=== PATIENT | female | born 1955 | race Caucasian/White ===

== ENCOUNTER 2016-10-21 19:18 | Emergency (ER) | payer MEDICARE ==
[2016-08-16 08:02] VITALS: BMI 25.0
[~2016-10-21 19:18] MED LIST: ALTACE5 MG PO; ASPIRIN325 MG PO; ASPIRIN81 MG PO; BAYER CHEWABLE81 MG PO; CALCIUM 500 + D1 TAB PO; CLARITIN; CLARITIN 10 MG10 MG PO; COREG 3.1253.125 MG GT; COREG 3.1253.125 MG PO; COREG12.5 MG PO; DILANTIN100 MG PO; FERROUS SULFAT325 MG PO; FLAGYL500 MG PO; FLEXERIL10 MG PO; FUROSEMIDE40 MG PO; GABAPENTIN100 MG PO; HYDROCODON-ACE1 EAC7 PO; HYDROCODONE-APA1 TAB PO; INSULIN; INSULIN LISPRO CI; K-TAB10 MEQ PO; LASIX40 MG PO; LEVAQUIN500 MG PO; LIPITOR40 MG PO; MIRALAX17 GM PO; MULTIPLE VITAMI1 TA1 PO; NAPROSYN250 MG PO; NAPROSYN500 MG PO; NEURONTIN 100100 MG PO; NEURONTIN 300300 MG PO; NORVASC5 MG PO; PEPCID20 MG PO; PLAVIX75 MG PO; POTASSIUM CHLO10 ME1 PO; PRAVACHOL40 MG PO; PROTONIX40 MG PO; REGLAN10 MG PO; RENVELA800 MG PO; RESTORIL15 MG PO; ROCALTROL0.5 MCG PO; ULTRAM50 MG PO; VITAMIN D2000 UNIT PO; VOLTAREN75 MG PO; ZOFRAN ODT4 MG/UDTAB PO; ZOFRAN4 MG PO
== END 2016-10-21 22:00 | disposition home or self-care (01) ==
LOC: D.ER 19:18
DX: E11.649 Type 2 diabetes mellitus with hypoglycemia without coma (principal); Z79.4 Long term (current) use of insulin; N18.9 Chronic kidney disease, unspecified; Z99.2 Dependence on renal dialysis

== ENCOUNTER 2016-10-27 06:00 | Observation (INO) | payer MEDICARE ==
[~2016-10-27] VITALS: Ht 165.1 cm; Wt 71.5 kg
[2016-10-27 06:33] LABS: BASOPHILS 0.7 % (0.0-2.0); EOSINOPHILS 2.9 % (0-7); HEMATOCRIT 30.9 % (36.0-48.0); HEMOGLOBIN 9.8 g/dL (12-16); IMMATURE GRANULOCYTES 0.2 % (0-5); LYMPHOCYTES 21.1 % (15-50); MCH 31.1 pg (26.0-34.0); MCHC 31.7 g/dL (31.0-37.0); MCV 98.1 fL (80.0-100.0); MEAN PLATELET VOLUME 11.5 fL (7.4-10.4); MONOCYTES 5.5 % (2-11); NEUTROPHILS 69.6 % (40-80); RBC 3.15 10x6/uL (4.00-5.40); RDW 13.7 % (11.5-14.5); WBC 4.6 10x3/uL (4.8-10.8)
[2016-10-27 06:37] LABS: PLATELET COUNT 112 10x3/uL (130-400)
[2016-10-27 06:52] LABS: ALBUMIN 3.4 g/dL (3.4-5.0); ANION GAP 11.4 mmol/L (8-16); BILIRUBIN - TOTAL 0.4 mg/dL (0.2-1.3); CALCIUM 9.1 mg/dL (8.5-10.1); CARBON DIOXIDE 31.8 mmol/L (21.0-32.0); CREATININE - SERUM 6.8 mg/dL (0.6-1.3); POTASSIUM - SERUM 5.2 mmol/L (3.5-5.1); PROTEIN - SERUM 6.6 g/dL (6.4-8.2)
[2016-10-27 07:02] LABS: TROPONIN-I 0.017 ng/mL (0.000-0.060)
--- NOTE | 2016-10-27 11:22 | NUR ---
1110-RECEIVED VIA STRETCHER TO ROOM FROM ED, SPOUSE AT BEDSIDE. RT AVF WITH + BRUIT AND THRILL. SALINE LOCK SEEN TO LEFT WRIST AREA. ON ROOM AIR. PATIENT HAS AN ISULIN PUMP THAT I ASKED FOR HER TO TAKE OFF. CHECKED FINGER STICK BLOOD SUGAR WITH RESULT OF 234.NON SKID SOCKS ARE PLACED ON PATIENT. WILL ADMIT.
[2016-10-27] MEDS ORDERED: MYSOLINE 50 MG50 MG PO (11:34)
[2016-10-27 11:43] VITALS: BP 133/33; BMI 25.2
[2016-10-27 11:50] VITALS: BP 133/33
[2016-10-27 15:52] VITALS: BP 125/41
--- NOTE | 2016-10-27 16:32 | NUR ---
CALL PLACED TO DR HERNANDEZ OFFICE R/T NEEDING SLIDING SCALE INSULIN. SPOKE WITH DR HERNANDEZ AND NEW ORDERS ARE RECEIVED.
--- NOTE | 2016-10-27 18:25 | NUR ---
DR SHERIFF HERE TO SEE PATIENT.
[2016-10-27 20:00] VITALS: BP 121/47
--- NOTE | 2016-10-27 21:22 | NUR ---
RESTING IN BED. LETHARGIC. AROUSES TO VOICE. ORIENTED CONVERSANT. DENIES NEEDS. NO ACUTE DISTRESS NOTED.
[2016-10-28] VITALS: BP 122/52
--- NOTE | 2016-10-28 02:09 | NUR ---
LYING IN BED WITH EYES CLOSED, CALL LIGHT IN REACH. WILL CONTINUE WITH PLAN OF CARE.
[2016-10-28 04:00] VITALS: BP 109/45
[2016-10-28 05:24] LABS: BASOPHILS 0.8 % (0.0-2.0); EOSINOPHILS 2.7 % (0-7); HEMATOCRIT 30.5 % (36.0-48.0); HEMOGLOBIN 9.6 g/dL (12-16); IMMATURE GRANULOCYTES 0.2 % (0-5); LYMPHOCYTES 35.1 % (15-50); MCH 30.8 pg (26.0-34.0); MCHC 31.5 g/dL (31.0-37.0); MCV 97.8 fL (80.0-100.0); MEAN PLATELET VOLUME 12.2 fL (7.4-10.4); MONOCYTES 8.1 % (2-11); NEUTROPHILS 53.1 % (40-80); PLATELET COUNT 116 10x3/uL (130-400); RBC 3.12 10x6/uL (4.00-5.40); WBC 4.8 10x3/uL (4.8-10.8)
[2016-10-28 05:55] LABS: ANION GAP 15.4 mmol/L (8-16); CALCIUM 8.9 mg/dL (8.5-10.1); CARBON DIOXIDE 27.8 mmol/L (21.0-32.0); CREATININE - SERUM 7.8 mg/dL (0.6-1.3)
[2016-10-28 05:58] LABS: POTASSIUM - SERUM 6.2 mmol/L (3.5-5.1)
--- NOTE | 2016-10-28 07:50 | NUR ---
0730-AM ROUNDING DONE, PATIENT IS AWAKE AND SMILING THIS AM. STATES THAT SHE FEELS BETTER. NS INFUSING AT 30 CC/HR (DECREASED TO 10 ORDERED) TO LEFT HAND. ON ROOM AIR. ON HEART MONITOR SHOWING SB, HR 52. RIGHT AVF, FOR DIALYSIS TODAY. WILL CONTINUE TO MONITOR.
[2016-10-28 08:06] VITALS: BP 105/44
--- NOTE | 2016-10-28 08:33 | NUR ---
RATIONALE FOR SCD'S EXPLAINED. REFUSED SCD'S
--- NOTE | 2016-10-28 10:41 | NUR ---
10:38 DCP: Discharge Planning Patient Name: JULIO ACE Encounter No: [id number] : 1955 Primary Insurance: MEDICARE A & B Anticipated DC Date: 10-28-2016 Planned Disposition: Home External Planned Provider: : JESSA follow-up note: Patient and family in agreement with discharge plan. No changes to plan. Case management will follow and assist as needed. Tova Chapman * Is the patient Alert and Oriented? Yes 0 * How many steps to enter\\exit or inside your home? 2 0 * PCP ARABELLA 0 * Pharmacy [facility] ([facility]) 0 * Preadmission Environment Home with Family 0 * ADLs Independent 0 * Equipment Glucometer 0 * Other Equipment The patient states she has a walker, cane, shower chair, and BSC that belonged to her mother in law but does not use any equipment. 0 * List name and contact numbers for known caregivers / representatives who currently or will assist patient after discharge: NIVIA ACE "spouse" ([phone]) 0 * Community resources currently utilized None 0 * Additional services required to return to the preadmission environment? No 0 * Can the patient safely return to the preadmission environment? Yes 0 * Has this patient been hospitalized within the prior 30 days at any [id number]: Tova Chapman 10/28/2016 10:31 DCP: Discharge Planning Patient Name: JULIO ACE Admission Status: Accout number: [id number] Admission Date: 10-27-2016 : 1955 Admission Diagnosis: Attending: NBA Current LOS: 1 Anticipated DC Date: 10-28-2016 Planned Disposition: Home Primary Insurance: MEDICARE A & B Discharge Planning Comments: CM MET WITH PATIENT TO DISCUSS DISCHARGE PLANNING/NEEDS. THE PATIENT STATES SHE RESIDES AT HOME WITH HER SPOUSE "NIVIA ACE" ([phone]) AND IS INDEPENDENT OF ALL ADL'S. SHE STATES SHE NOW DOES HOME DIALYSIS ON . SHE DENIES THE NEED FOR HH OR DME SUPPLIES AT THIS TIME. HER SPOUSE WILL BE HER CAREGIVER AT HOME WELL HER TRANSPORTATION HOME AT DISCHARGE. CM TO FOLLOW AND ASSIST NEEDED WITH DISCHARGE PLANNING/NEEDS. Regional Clinical Research Associate: Tova Chapman RN/SHERYL
[2016-10-28 12:00] VITALS: BP 112/42
--- NOTE | 2016-10-28 12:28 | NUR ---
DENIES NEEDS AT PRESENT TIME. REPORTS TO FEELING A LOT BETTER THAN YESTERDAY, HAS A SMILE ON HER FACE. WILL CONTINUE TO FOLLOW, STILL AWITING TO GO TO DIALYSIS TODAY.
[2016-10-28 13:00] VITALS: Ht 165.1 cm; Wt 71.5 kg
--- NOTE | 2016-10-28 13:47 | NUR ---
DIALYSIS HERE FOR BEDSDIE HD.
[2016-10-28 16:00] VITALS: BP 112/41
[2016-10-28 20:51] VITALS: BP 128/51
[2016-10-29 00:54] VITALS: BP 127/58
[2016-10-29 04:03] VITALS: BP 128/52
[2016-10-29 05:17] LABS: BASOPHILS 0.8 % (0.0-2.0); EOSINOPHILS 3.3 % (0-7); HEMATOCRIT 28.5 % (36.0-48.0); IMMATURE GRANULOCYTES 0.3 % (0-5); LYMPHOCYTES 35.1 % (15-50); MCH 31.4 pg (26.0-34.0); MCHC 31.6 g/dL (31.0-37.0); MCV 99.3 fL (80.0-100.0); MEAN PLATELET VOLUME 11.5 fL (7.4-10.4); MONOCYTES 8.4 % (2-11); NEUTROPHILS 52.1 % (40-80); PLATELET COUNT 102 10x3/uL (130-400); RBC 2.87 10x6/uL (4.00-5.40); RDW 14.2 % (11.5-14.5); WBC 3.6 10x3/uL (4.8-10.8)
[2016-10-29 05:42] LABS: ANION GAP 14.5 mmol/L (8-16); CALCIUM 8.2 mg/dL (8.5-10.1); CARBON DIOXIDE 27.2 mmol/L (21.0-32.0); MAGNESIUM - SERUM 1.8 mg/dL (1.8-2.4); PHOSPHOROUS 4.6 mg/dL (2.5-4.9)
[2016-10-29 05:52] LABS: CREATININE - SERUM 4.5 mg/dL (0.6-1.3); POTASSIUM - SERUM 4.7 mmol/L (3.5-5.1)
--- NOTE | 2016-10-29 05:58 | NUR ---
AM GLUCOSE 489. NEPHROLOGY SUSI.
--- NOTE | 2016-10-29 06:07 | NUR ---
RECEIVED CALL FROM DR CRUZ. INFORMED DR THAT PT GLUCOSE 489. PHYSICIAN ASKED IF PT HAD SLIDING SCALE. INFORMED PHYSICIAN THAT THAT SLIDING SCALE STATED TO GIVE PT 12 UNITS AND TO CALL MD. NO NEW ORDERS RECEIVED.
--- NOTE | 2016-10-29 07:00 | NUR ---
RECEIVED REPORT. ASSUMED CARE OF PATIENT. CALL LIGHT WITHIN REACH. PATIENT A&O. RESP EVEN AND UNLABORED. DENIES ANY ACUTE PAIN. REPORTS CHRONIC BACK PAIN. AT BEDSIDE FOR ROUNDS. NOTIFIED HIM OF 489 FSBS AT 0600. WILL RECHECK AT 0800 AND COVER PER SLIDING SCALE PER . WANTS PATIENT FSBS AT 150 OR HIGHER. DENIES NEEDS. NO DISTRESS.
[2016-10-29 07:35] VITALS: BP 119/75
--- NOTE | 2016-10-29 08:02 | NUR ---
CALLED TO PATIENT ROOM, PATIENT STATES IV TO LEFT HAND IS LEAKING. 20 GAUGE TO LEFT HAND REMOVED DUE TO LEAKING. CATHETER TIP INTACT. NO BLEEDING FROM SITE. 2X2 GAUZE APPLIED AND SECURED WITH TAPE. WILL RESITE IV AFTER PATIENT COMPLETES AM MEAL.
--- NOTE | 2016-10-29 08:35 | NUR ---
22 GAUGE IV PLACED TO LEFT WRIST X 1 STICK. GOOD BLOOD RETURN, EASY FLUSH. TAPED, DATED AND SECURED. PATIENT TOLERATED IV PLACEMENT WELL. NO DISTRESS.
--- NOTE | 2016-10-29 08:54 | NUR ---
FSBS 359. 10 UNITS HUMALOG ADMINITSERED PER SLIDING SCALE AT THIS TIME PER . NO DISTRESS.
--- NOTE | 2016-10-29 08:54 | NUR ---
PATIENT REFUSED BP MEDICATIONS JUST INCASE SHE HAS DIALYSIS TODAY.
[2016-10-29 11:19] VITALS: BP 113/50
--- NOTE | 2016-10-29 11:50 | NUR ---
FSBS 316. 8 UNITS HUMALOG ADMINISTERED PER SLIDING SCALE. CONSUMING NOON MEAL AT THIS TIME.
--- NOTE | 2016-10-29 14:08 | NUR ---
RESTING WELL IN BED WITH ATTENTION TOWARD TELEVISION. CALL LIGHT WITHIN REACH. NO DISTRESS. DIET LEMON GRINDSTONE SODA PROVIDED UPON REQUEST.
[2016-10-29 15:09] VITALS: BP 123/60
--- NOTE | 2016-10-29 16:40 | NUR ---
FSBS 231. 4 UNITS HUMALOG ADMINISTERED PER SLIDING SCALE AT THIS TIME. NO DISTRESS. CONSUMIN PM MEAL.
--- NOTE | 2016-10-29 20:55 | NUR ---
FSBS 459 FIRST CHECK 420 SECOND CHECK. PHYSICIAN PAGED
--- NOTE | 2016-10-29 21:03 | NUR ---
DR NINA RETURNED CALL. PT SS CHANGED TO HIGH RESISTANCE. ADDITIONAL 5 UNITS TO BE GIVEN NOW
[2016-10-29 21:17] VITALS: BP 144/56
[2016-10-30 02:01] VITALS: BP 138/50
--- NOTE | 2016-10-30 02:05 | NUR ---
EYES CLOSED, RESP EVEN AND UNLAB, WITH NO S/S OF ACUTE DISTRESS NOTED. RT ARM FISTULA NOTED. HOB UP SR UP X2, C/L IN REACH. CONTINUE TO MONITOR.
--- NOTE | 2016-10-30 04:13 | NUR ---
PT 4 AM FSBS 30. TEST REPEATED, RESULT 32. ADMINISTERED 50ML D50
--- NOTE | 2016-10-30 04:16 | NUR ---
EMAR NOT ALLOWING D50 TO BE ADMINISTERED 1 TIME DOSE OF 50ML. EMAR DOCUMENTATION COMPLETED TWICE TO TOTAL 50ML
[2016-10-30 04:25] VITALS: BP 139/65
[2016-10-30 05:09] LABS: BASOPHILS 0.8 % (0.0-2.0); EOSINOPHILS 5.6 % (0-7); HEMATOCRIT 28.4 % (36.0-48.0); HEMOGLOBIN 9.1 g/dL (12-16); IMMATURE GRANULOCYTES 0.3 % (0-5); LYMPHOCYTES 35.5 % (15-50); MCH 31.5 pg (26.0-34.0); MCV 98.3 fL (80.0-100.0); MEAN PLATELET VOLUME 11.1 fL (7.4-10.4); MONOCYTES 11.5 % (2-11); NEUTROPHILS 46.3 % (40-80); PLATELET COUNT 115 10x3/uL (130-400); RBC 2.89 10x6/uL (4.00-5.40); RDW 14.3 % (11.5-14.5); WBC 3.9 10x3/uL (4.8-10.8)
[2016-10-30 05:30] LABS: ANION GAP 13.2 mmol/L (8-16); CALCIUM 8.7 mg/dL (8.5-10.1); CARBON DIOXIDE 28.6 mmol/L (21.0-32.0); PHOSPHOROUS 5.1 mg/dL (2.5-4.9)
[2016-10-30 05:32] LABS: CREATININE - SERUM 6.2 mg/dL (0.6-1.3); POTASSIUM - SERUM 3.8 mmol/L (3.5-5.1)
[2016-10-30 07:28] VITALS: BP 110/53
[2016-10-30 11:57] VITALS: BP 131/54
[2016-10-30 15:10] VITALS: BP 119/53
--- NOTE | 2016-10-30 18:46 | NUR ---
ALERT AND ORIENTED X4. FSBS 140, CUP OF ICECREAM GIVEN PER PATIENT REQUEST. PREPARE SHIFT CHANGE REPORT. DENIES PAIN OR SOB. ANXIOUS TO GO HOME. CONTINUE SAFETY PRECAUTIONS.
--- NOTE | 2016-10-30 20:15 | NUR ---
PT AWAKE, ALERT, ORIENTED, HERE TO TAKE PT HOME. PT DENIES ANY NEEDS. PT STATES THAT HER GLUCOMETER IS NOT FUNCTIONING PROPERLY AND READING HIGHER THAN WHAT HER ACTUAL FSBS IS, HOWEVER, SHE CHECKED IT RIGHT BEFORE I DID WITH HER GLUCOMETER AND GOT A READING OF 150. I CHECKED IMMEDIATELY AFTER, USING A DIFFERENT FINGER AND IT WAS 194. I DID TEACHING ON HER MEDICATIONS, AND S/S OF HYPOGLYCEMIA TO HER AND HER . WILL D/C IV, GO OVER D/C PAPERWORK AND ANSWER ANY QUESTIONS PT AND MAY HAVE AND REITERATE THE IMPORTANCE OF KEEPING HER FOLLOW UP APPTS WITH HER FRUIT AND VEGETABLE CLASSER, PCP, AND DYALISIS.
--- NOTE | 2016-10-30 20:44 | NUR ---
REVIEWED D/C PAPERS WITH PT AND , ONLY QUESTION FROM PT WAS ABOUT DOWNLOADING HER GLUCOMETER. I ADVISED PT TO SPEAK WITH HER NURSE AT HER ENDOCRINOLOGISTS OFFICE AND TO MAKE SURE SHE KEEPS HER APPT. PT AND STATED THEY UNDERSTOOD THESE INSTRUCTIONS, AND AGREED THAT THEY WILL KEEP THE UPCOMING APPTS. I ALSO URGED PT TO CALL DR. BELL OFFICE [facility] TOMORROW FOR AN APPT THIS WEEK. PT AGREED TO DO SO. PT WAS TAKEN VIA WHEELCHAIR TO FRONT DOOR WHERE WAS WAITING WITH THEIR CAR.
--- NOTE | 2016-11-08 17:39 | HP ---
PATIENT: JULIO ACE MEDICAL RECORD: [id number] ACCOUNT: [id number] LOCATION:[address] : [birth year] ADMISSION DATE: 10/27/16 HISTORY AND PHYSICAL EXAMINATION DATE OF ADMISSION: 10/27/2016 CHIEF COMPLAINT: Nausea and vomiting. HISTORY OF PRESENT ILLNESS: The patient is a 61-year-old diabetic female, who presented to the Emergency Room via ambulance. The patient has a history of being insulin-dependent diabetic, states her awakened at approximately 3:00 a.m. this morning, felt that she was clammy. She also had periods of having hypoglycemic episode was in the ER less than 2 weeks ago. She has seen by an chief supply chain officer in [place]. The patient states her began giving her foods to help elevate her blood sugar. She became acutely nauseated and started having vomiting, presents to the Emergency Room. PAST MEDICAL HISTORY: Significant. Recently, the patient was started on hemodialysis 3 times a week. She has also had a history of having congestive heart failure. She has had arteriosclerotic heart disease. She has had history of anemia, hypertension. She has had 7 cardiac stents placed. She also had back surgery times 3. She had cataract surgery. She had tubal ligation, tonsillectomy, . She has had a myocardial infarction. FAMILY HISTORY: Unknown. She is an adopted child. ALLERGIES: CIPRO. MEDICATIONS: The patient is on amlodipine 5 mg 1 p.o. b.i.d., aspirin 81 mg once a day, atorvastatin 40 mg once a day, carvedilol 12.5 b.i.d., Centrum Silver 1 a day, famotidine 20 mg b.i.d., Lasix 40 mg 1 p.o. b.i.d., gabapentin 100 mg t.i.d. She is on Humalog sliding scale. She also was on insulin pump, dose is unknown. Tramadol 50 mg one every 4 hours p.r.n. severe pain. HABITS: The patient is a former smoker, 1 pack a day, stopped many years ago. She is educated through the 12th grade, born and raised in [place]. REVIEW OF SYSTEMS: CONSTITUTIONAL: She denies any headaches, seizures, or syncope. Denies change in visual or auditory acuity. PULMONARY: She denies any shortness of breath, cough, congestion, history of asthma or bronchitis. CARDIOVASCULAR: She has had no chest pain, palpitation, PND, orthopnea. GASTROINTESTINAL: No chronic nausea, vomiting, melena or hematochezia. GENITOURINARY: No urgency, frequency, or dysuria. PHYSICAL EXAMINATION: GENERAL: The patient was somewhat somnolent. Would arouse to verbal stimuli, would respond. VITAL SIGNS: Her temperature is 97.9, her pulse 80, respirations 18, her blood pressure 122/56, O2 sat was 100%. HEENT: Her head is normocephalic. No lesions. Ears: TMs clear. Eyes: Pupils equal, round and reactive to light. Her extraocular movements are intact. Her nasal cavity, oral cavity, oropharynx clear. HISTORY AND PHYSICAL [id number] JULIO ACE NECK: Supple. There is no adenopathy. HEART: Has a regular rhythm. No murmurs, gallops or rubs. LUNGS: Clear. ABDOMEN: Soft, bowel sounds positive. No organomegaly. GENITAL AND RECTAL: Deferred. The patient had blood sugar of 67 by EMS. The patient was given an amp of D50. Blood sugars were elevated at 353. Initially, her temperature is 97.5, her pulse is 55, respirations 14, blood pressure 125/41, pulse ox 98. Her head is normocephalic. No lesions. Ears: TMs clear. Eyes: Pupils equal, round and reactive to light. Extraocular movements intact. Nasal cavity, oral cavity and oropharynx clear. Neck: Supple. There is no adenopathy. Heart with no murmurs, gallops or rubs. Lungs: Clear. Abdomen is soft, nontender. Lower extremities have no edema. LABORATORY DATA: The patient's white count was 4.6, hemoglobin 9.8, hematocrit 30.9, her platelets were 112. Sodium was 133, potassium 5.2, chloride is 95, CO2 is 31.8. Her anion gap 11.2, BUN 62, creatinine 6.8. Glucose was 231. Liver functions were unremarkable. ProBNP was elevated at 5794. ASSESSMENT: 1. Nausea and vomiting, possible gastroenteritis. 2. History of insulin-dependent diabetes mellitus with periods of hypoglycemia. 3. Chronic renal failure, now on hemodialysis 3 times a week. 4. Hypertension. 5. History of arteriosclerotic heart disease with stents times 7. PLAN: The patient is admitted. She will be placed on normal saline. She will also stopped her insulin pump, place on Humalog sliding scale. Nephrology consultation will be obtained. She will be given antiemetics as well. TRANSINT:[id number] Voice Confirmation ID: [id number] DOCUMENT ID: [id number] ELIZABETH BELL MD at 1739 CC: [id number] DICTATION DATE: 10/27/161754 TEXTILE MACHINE OPERATOR: 10/27/161913 DIS IN 10/30/16 [facility] [address] [place] [address]
== END 2016-10-30 20:54 | disposition home or self-care (01) ==
LOC: D.ER 06:00 → OBSVTIME 09:06 → D.M2 09:06 → D.MS 09:06 → D.M2 09:43 → D.SDCHOLD 10-28 13:52 → D.M2 10-30 20:54
PROVIDERS: Family Medicine; Internal Medicine Nephrology; ADMIT Family Medicine
DX: I13.2 Hypertensive heart and chronic kidney disease with heart failure and with stage 5 chronic kidney disease, or end stage renal disease (principal); N18.6 End stage renal disease; E87.1 Hypo-osmolality and hyponatremia; K52.9 Noninfective gastroenteritis and colitis, unspecified; E87.5 Hyperkalemia; E11.22 Type 2 diabetes mellitus with diabetic chronic kidney disease; E11.65 Type 2 diabetes mellitus with hyperglycemia; Z99.2 Dependence on renal dialysis; Z79.4 Long term (current) use of insulin; I25.10 Atherosclerotic heart disease of native coronary artery without angina pectoris; D69.6 Thrombocytopenia, unspecified; D63.1 Anemia in chronic kidney disease; Z95.5 Presence of coronary angioplasty implant and graft; I25.2 Old myocardial infarction

== ENCOUNTER → 2016-11-09 17:05 | Outpatient (CLI) | payer MEDICARE ==
[2016-10-28 13:00] VITALS: BMI 24.7
[~2016-11-09 17:05] MED LIST changes: +MYSOLINE 50 MG50 MG PO
== END | disposition home or self-care (01) ==
LOC: D.MAMMO 11:45
DX: Z12.31 Encounter for screening mammogram for malignant neoplasm of breast (principal)

== ENCOUNTER → 2016-12-09 15:56 | Outpatient (CLI) | payer MEDICARE ==
[2016-10-28 13:00] VITALS: BMI 24.7
== END | disposition home or self-care (01) ==
LOC: D.MAMMO 09:00
DX: R92.8 Other abnormal and inconclusive findings on diagnostic imaging of breast (principal)

== ENCOUNTER → 2017-01-16 16:01 | Outpatient (CLI) | payer MEDICARE ==
[2016-10-28 13:00] VITALS: BMI 24.7
[2017-01-17 10:05] LABS: BASOPHILS 0.8 % (0-2); EOSINOPHILS 5.1 % (0-7); HEMATOCRIT 35.6 % (36.0-48.0); HEMOGLOBIN 11.4 g/dL (12-16); LYMPHOCYTES 37.8 % (15-50); MCV 93.7 fL (80.0-100.0); MEAN PLATELET VOLUME 13.1 fL (7.4-10.4); NEUTROPHILS 48.3 % (40-80); PLATELET COUNT 129 10x3/uL (130-400); RDW 13.9 % (11.5-14.5); WBC 5.1 10x3/uL (4.8-10.8)
[2017-01-17 10:13] LABS: ANION GAP 14.8 mmol/L (8-16); CALCIUM 9.2 mg/dL (8.5-10.1); CARBON DIOXIDE 29.1 mmol/L (21.0-32.0); CREATININE - SERUM 5.8 mg/dL (0.6-1.3); POTASSIUM - SERUM 3.9 mmol/L (3.5-5.1)
== END | disposition home or self-care (01) ==
LOC: D.LABREF 16:01
PROVIDERS: Internal Medicine Cardiovascular Disease
DX: I25.10 Atherosclerotic heart disease of native coronary artery without angina pectoris (principal)

== ENCOUNTER → 2017-01-26 05:54 | Outpatient (CLI) | payer MEDICARE ==
[~2017-01-26] VITALS: Ht 165.1 cm; Wt 69.5 kg
--- NOTE | ~2017-01-26 | HEMODYNAMI ---
PATIENT:JULIO ACE MEDICAL RECORD: [id number] : 55 LOCATION:[facility] ADMISSION DATE: 01/26/17 Generatedon:01/26/20179:54 Patient name: JULIO ACE Patient #: [id number] SSN: : 1955 Date of study: 01/26/2017 Page: Of Hemodynamic Procedure Report Patient Data Patient Demographics Procedure consent was obtained First Name: JULIO Gender: Female Last Name: MALKA : 1955 Middle Initial: A Age: 62 year(s) Patient #: [id number] Race: Unknown Additional ID: [id number] Contact details Address: [address] [place] [address] State: [place] City: [facility] Zip code: [address] Past Medical History Allergies Allergen Reaction Date Comments Reported Other allergy 01/26/2017 cipro Admission Admission Data Admission Date: 01/26/2017 Admission Time: 5:54 Lab Results Lab Result Date: 01/26/2017 Lab Result Time: 6:20 Biochemistry Name Units Result Min Max BUN mg/dl 54 --(----)-* 7 18 Creatinine mg/dl 6.6 --(----)-* 0.6 1.3 CBC Name Units Result Min Max Hematocrit % 35.5 *-(----)-- 42 54 Hemoglobin g/dl 11.3 *-(----)-- 13.5 17.5 Procedure Procedure Types Cath Procedure Diagnostic Procedure LHC LHC w/Coronaries Miscellaneous Procedures Moderate Sedation up to 45 minutes Procedure Description Procedure Date Procedure Date: 01/26/2017 Procedure Start Time: 9:35 Procedure End Time: 9:53 Procedure Staff Name Function Buddy Young MD Performing Physician Larissa Fernandez RT Scrub Greg Quevedo RN Nurse Thai Castellano RT Monitor Procedure Data Cath Procedure Fluoroscopy Diagnostic fluoroscopy Total fluoroscopy Time: 1.5 time: 1.5 min min Diagnostic fluoroscopy Total fluoroscopy dose: 241 dose: 241 mGy mGy Contrast Material Contrast Material Type Amount (ml) Isovue 300 66 Entry Location Entry Primary Successful Side Size Upsize Upsize Entry Closure Succes sful Closure Location (Fr) 1 (Fr) 2 (Fr) Remarks Device Remarks Femoral Right 5 Fr Exoseal artery Estimated blood loss: 5 ml Diagnostic catheters Device Type Used For End Catheter Placement Cordis 5Fr JL 4.0 Procedure Catheter (MP) Cordis 5Fr 3DRC Catheter Procedure (MP) Cordis 5Fr Pigtail Procedure Catheter (MP) Procedure Complications No complications Procedure Medications Medication Administration Route Dosage Oxygen NC 2 l/min Heparin Flush Bag added to field 2 bags (1000units/500ml NS) 0.9% NaCl I.V. 100 ml/hr Fentanyl I.V. 50 mcg Versed I.V. 1 mg Fentanyl I.V. 50 mcg Versed I.V. 1 mg Hemodynamics Rest HGB: 11.3 (g/dl) Heart Rate: 74 (bpm) Pressure Samples Time Site Value (mmHg) Purpose Heart Use Rate(bpm) 9:47 LV 116/6,24 Snapshot 73 9:48 AO 115/50(76) Pullback 74 9:48 LV 119/1,23 Pullback 74 Gradients Valve Time Site 1 Site 2 Mean SEP/DFP Peak To Heart Use (mmHg) (sec/min) Peak Rate (mmHg) (bpm) Aortic 9:48 LV AO 12 21 4 74 119/1,23 115/50(76) Calculations Valve P-P Mean Valve Index Valve Source Name Gradient Area Flow (cm2) Aortic 4 12 4 12 Snapshots Pre Cath Intra NCS Post Cath Vital Signs Time Heart Resp SPO2 etCO2 [id number] NIBP (mmHg) Rhythm Pain Sedation Rate (ipm) (%) (mmHg) (mmHg) Status Level (bpm) 9:22:05 75 18 100 0 0 147/64(105) NSR 0 (11) 10(A) , No pain 9:26:30 72 17 100 0 0 138/59(97) NSR 0 (11) 10(A) , No pain 9:30:43 68 18 95 0 0 112/50(84) NSR 0 (11) 9(A) , No pain 9:34:57 71 16 96 0 0 104/48(82) NSR 0 (11) 9(A) , No pain 9:39:11 70 17 97 0 0 100/45(82) NSR 0 (11) 9(A) , No pain 9:43:23 67 17 98 0 0 95/42(73) NSR 0 (11) 9(A) , No pain 9:47:33 74 17 99 0 0 99/44(72) NSR 0 (11) 9(A) , No pain 9:51:43 73 18 98 0 0 107/53(80) NSR 0 (11) 9(A) , No pain Medications Time Medication Route Dose Verified Delivered Reason Notes Effect iveness by by 9:24:33 Oxygen NC 2 Greg Greg Per l/min Sae Quevedo RN physician RN 9:24:44 Heparin Flush added 2 Greg Greg used for Bag to bags Sae Quevedo tennis director (1000units/500ml field RN NS) 9:25:50 0.9% NaCl I.V. 100 Greg Greg Per ml/hr Sae Quevedo RN physician RN 9:27:13 Fentanyl I.V. 50 Greg Greg for belem Quevedo RN sedation RN 9:27:21 Versed I.V. 1 mg Greg Greg for Sae Quevedo RN sedation RN 9:39:03 Fentanyl I.V. 50 Greg Greg for belem Quevedo RN sedation RN 9:39:08 Versed I.V. 1 mg Greg Greg for Sae Quevedo RN sedation sales force developer Log Time Note 8:58:05 Greg Quevedo RN sent for patient. Start room use. 8:58:07 Time tracking: Regular hours 8:58:11 Plan of Care:Hemodynamics will remain stable., Cardiac rhythm will remain stable., Comfort level will be maintained., Respiratory function will remain adequate., Patient/ family verbilizes understanding of procedure., Procedure tolerated without complication., Recovers from procedure without complications.. 9:18:02 Patient received from Pre/Post Procedure Room to CCL 1 Alert and oriented. Tansferred to table in Supine position. 9:18:03 Warm blankets applied, and cherry hugger turned on for patient comfort. 9:18:03 Correct patient and procedure confirmed by team. 9:18:05 Signed procedure consent form obtained from patient. 9:18:06 ECG and BP/O2 sat monitors applied to patient. 9:18:16 H&P Date Dictated: 01/16/2017 Within 30 days and on chart., H&P Addendum completed by physician on day of procedure. (MUST COMPLETE FOR ALL OUTPATIENTS). 9:18:17 Pre-procedure instructions explained to patient. 9:18:17 Pre-op teaching completed and patient verbalized understanding. 9:20:53 Vital chart was started 9:23:03 Family in waiting room. 9:23:05 Patient NPO since Midnight. 9:23:12 Patient allergic to Other allergycipro 9:23:16 Is the patient allergic to Iodine/contrast media? No. 9:23:18 Is patient on blood thinner?Yes 9:23:20 ACC The patient was administered the following blood thiners within the last 24 hours: ACCAspirin 9:23:26 Patient diabetic? Yes. 9:23:27 If diabetic: On Metformin? No 9:23:30 Previous problem with sedation/anesthesia? No ? 9:23:31 Snore? Yes 9:23:32 Sleep apnea? No 9:23:33 Deviated septum? No 9:23:34 Opens mouth fully? Yes 9:23:34 Sticks out tongue? Yes 9:23:36 Airway obstruction? No ? 9:23:43 Dentures? Yes Partials out 9:23:47 Pre procedure: right dorsailis pedis pulse 2+ Normal; easily identifiable; not easily obliterated 9:24:00 Patient pain scale 0/10 ?. 9:24:05 IV patent on arrival in left hand with 0.9% NaCl at O. 9:24:32 Lab Result : BUN 54 mg/dl 9:24:32 Lab Result : Hemoglobin 11.3 g/dl 9:24:32 Lab Result : Creatinine 6.6 mg/dl 9:24:32 Lab Result : Hematocrit 35.5 % 9:24:33 Oxygen 2 l/min NC was administered by Greg Quevedo RN; Per physician; 9:24:35 Lab results completed and on chart. 9:24:38 Right groin area was prepped with chlora-prep and draped in sterile fashion 9:24:39 Alarms reviewed by R. N. 9:24:39 Sharps counted by scrub and verified by R.N. 9:24:44 Heparin Flush Bag (1000units/500ml NS) 2 bags added to field was administered by Greg Quevedo RN; used for procedure; 9:24:44 Use device set Femoral Dx 9:24:45 Tegaderm 4 x 4 opened to sterile field. 9:24:46 Acist Manifold opened to sterile field. 9:24:47 Acist Hand Control opened to sterile field. 9:24:48 Acist Syringe opened to sterile field. 9:24:48 Bag Decanter opened to sterile field. 9:24:49 Medline Cath Pack opened to sterile field. 9:24:49 Terumo 5Fr [place] Sheath opened to sterile field. 9:24:50 St Otto 260cm J .035 wire opened to sterile field. 9:24:51 Diagnostic Infinity 5Fr Multipack catheter opened to sterile field. 9:24:59 Baseline sample Acquired. 9:25:03 Rhythm: sinus rhythm 9:25:04 Full Disclosure recording started 9:25:07 Physician arrived 9:25:11 --------ALL STOP TIME OUT------ 9:25:12 Final Timeout: patient, procedure, and site verified with staff and physician. All members of the team are in agreement. 9:25:14 Right groin site verified by team. 9:25:17 Physical assessment completed. ASA score P 2 - A patient with mild systemic disease as per Buddy Young MD. 9:25:19 Sedation plan: IV Moderate Sedation Versed, Fentanyl 9:25:50 0.9% NaCl 100 ml/hr I.V. was administered by Greg Quevedo RN; Per physician; 9:27:13 Fentanyl 50 mcg I.V. was administered by Greg Quevedo RN; for sedation; 9:27:21 Versed 1 mg I.V. was administered by Greg Quevedo RN; for sedation; 9:35:04 Zero performed for pressure channel P1 9:35:10 Zero performed for pressure channel P1 9:35:40 Procedure started. 9:35:43 Local anesthetic to right femoral artery with Lidocaine 2% by Buddy Young MD.INITIAL ACCESS ONLY 9:37:32 A 5 Fr sheath was inserted into the Right Femoral artery 9:39:03 Fentanyl 50 mcg I.V. was administered by Greg Quevedo RN; for sedation; 9:39:08 Versed 1 mg I.V. was administered by Greg Quevedo RN; for sedation; 9:41:05 A Cordis 5Fr JL 4.0 Catheter (MP) was advanced over the wire and used for Procedure. 9:42:54 LCA angiography performed. 9:44:23 Catheter exchanged over wire. 9:44:29 A Cordis 5Fr 3DRC Catheter (MP) was advanced over the wire and used for Procedure. 9:45:24 RCA angiography performed. 9:46:26 Catheter exchanged over wire. 9:46:30 A Cordis 5Fr Pigtail Catheter (MP) was advanced over the wire and used for Procedure. 9:48:16 Injector settings: Ml/sec: 10, Volume: 20, 9:48:20 LV gram done using CLAYTON 9:48:25 LV hemodynamics recorded. 9:48:34 EF : 45 % 9:48:59 Catheter removed. 9:49:10 Cordis 5Fr Exoseal opened to sterile field. 9:49:20 Sheath removed intact; hemostasis achieved with Exoseal to the Right Femoral artery. 9:49:22 Procedure ended.(Physican Out) 9:50:58 Fluoroscopy time 01.50 minutes. 9:51:02 Fluoroscopy dose: 241 mGy 9:51:02 Flurop Dose total: 241 9:51:07 Contrast amount:Isovue 300 66ml. 9:51:08 Sharps counted by scrub and verified by R.N. 9:51:09 Insertion/operative site no bleeding no hematoma. 9:51:12 Post-op/insertion site Right Femoral artery dressed using a 4 x 4 and Tegaderm. 9:51:16 Post right femoral artery:stable, soft, clean and dry 9:51:17 Post Procedure Pulses reassessed and unchanged 9:51:20 Post-procedure physical assessment completed. ASA score P 2 - A patient with mild systemic disease as per Buddy Young MD. 9:51:23 Post procedure rhythm: unchanged. 9:51:25 Estimated blood loss: 5 ml 9:51:26 Post procedure instruction explained to patient.Patient verbalizes understanding. 9:51:27 Patient needs reinforcement of post procedure teaching. 9:52:41 Procedure type changed to Cath procedure, Diagnostic procedure, LHC, LHC w/Coronaries, Miscellaneous Procedures, Moderate Sedation up to 45 minutes 9:53:04 Procedure and supply charges have been captured, reviewed, submitted and are correct. 9:53:06 Procedure Complication : No complications 9:53:08 Vital chart was stopped 9:53:09 See physician's report for complete and final results. 9:53:11 Report given to Pre/Post Procedure Room. 9:53:13 Patient transfered to Pre/Post Procedure Room with Stretcher. 9:53:15 Procedure ended. 9:53:15 Full Disclosure recording stopped 9:53:22 End room use (Document Last) Device Usage Item Name Manufacture Quantity Catalog Hospital Part Current Minimal Lo t# / Number Charge Number Stock Stock Serial# Code Tegaderm 4 3M 1 [id number] [id number] 735260 5 x 4 Acist Acist 1 78668 404649 180688 603057 5 Manifold Medical Systems Inc Acist Hand Acist 1 70834 275299 441250 450688 5 Control Medical Systems Inc Acist Acist 1 49373 595190 427435 828705 20 Syringe Medical Systems Inc Bag Microtek 1 2002S 823966 17596 726054 5 In[employer]o [employer] Inc[employer] Medline Cardinal 1 [id number] 768608 32246 936580 5 Cath Pack Health Terumo 5Fr Terumo 1 [id number] 872764 854309 927096 [address] Otto 1 186724 379083 373942 487400 30 260cm J .035 wire Diagnostic Cardinal 1 [id number] 338602 37638 925363 30 Infinity Health 5Fr Multipack catheter Cordis 5Fr Cardinal 1 410878 5 JL 4.0 Health Catheter (MP) Cordis 5Fr Cardinal 1 917336 5 3DRC Health Catheter (MP) Cordis 5Fr Cardinal 1 038870 5 Pigtail Health Catheter (MP) Cordis 5Fr Cardinal 1 EX500 996689 918063 125900 10 Smash Bucket Signature Audit [place] Stage Time Signature Unsigned Intra-Procedure 01/26/2017 Thai Castellano 9:54:10 AM RT(R) Signatures Monitor : Thai Castellano RT Signature : Date : Time : [facility] [address] [facility] [address]
--- NOTE | ~2017-01-26 | OP ---
PATIENT NAME: JULIO ACE MEDICAL RECORD: [id number] :55 LOCATION:D.[facility] ADMISSION DATE: SURGEON: TROY MERCADO M.D. DATE OF OPERATION: 01/26/2017 PROCEDURES PERFORMED: 1. Selective coronary angiography. 2. Left heart catheterization with ventriculogram. INDICATION: A 62-year-old woman who is about to undergo renal transplantation. She needs cardiac clearance. REFERRING PHYSICIAN: Jose Manuel Thomas MD. EQUIPMENT USED: A 5-Cymro JL4, Vimal right, pigtail catheter. TECHNIQUE: A 5-Cymro sheath was inserted in retrograde fashion in the right common femoral artery. Next, selective coronary angiography was performed in standard views using 5-Cymro JL4 and Vimal right. Left heart catheterization was performed using pigtail catheter. CORONARY ANATOMY: 1. Left main: Left main trunk is moderate in caliber. It gives rise to the LAD and circumflex. There is no obstruction. 2. LAD: This is a moderate-caliber vessel extending to the apex. The proximal mid vessel has been stented. The stents are widely patent. The first diagonal is diffusely diseased, but is a small vessel, less than 2 mm in diameter. 3. Circumflex: This vessel is moderate in caliber. The proximal mid vessel has been stented. The stents are widely patent. The mid vessel demonstrates a smooth 40% stenosis. 4. Right coronary: This vessel is large in caliber and dominant. The proximal mid vessel has been stented. The stents are widely patent. There is no evidence of restenosis. 5. Left ventricle: Left ventricle is normal in size. There is mild LV dysfunction noted. Estimated ejection fraction is in the order of 45%. IMPRESSION: 1. Widely patent stents in the right coronary artery, circumflex, and left anterior descending without evidence of restenosis. 2. Mild left ventricular dysfunction. RECOMMENDATIONS: At this point, she is clear from cardiac standpoint, she will undergo renal transplantation. TRANSINT:[id number] Voice Confirmation ID: [id number] DOCUMENT ID: [id number] TROY MERCADO M.D. CC: [id number] DICTATION DATE: 01/26/17 1002 SLAB STRIPPER: 01/26/17 1103 [facility] [address] [place] [id number]
[2017-01-26 06:51] VITALS: BP 159/63; Ht 165.1 cm; Wt 69.5 kg
[2017-01-26 06:55] LABS: ANION GAP 17.5 mmol/L (8-16); CALCIUM 9.3 mg/dL (8.5-10.1); CARBON DIOXIDE 26.1 mmol/L (21.0-32.0); CREATININE - SERUM 6.6 mg/dL (0.6-1.3); POTASSIUM - SERUM 5.6 mmol/L (3.5-5.1)
[2017-01-26 07:00] LABS: BASOPHILS 0.6 % (0-2); EOSINOPHILS 1.4 % (0-7); HEMATOCRIT 35.5 % (36.0-48.0); HEMOGLOBIN 11.3 g/dL (12-16); IMMATURE GRANULOCYTES 0.2 % (0-5); LYMPHOCYTES 18.7 % (15-50); MCH 30.2 pg (26.0-34.0); MCHC 31.8 g/dL (31.0-37.0); MCV 94.9 fL (80.0-100.0); MEAN PLATELET VOLUME 10.7 fL (7.4-10.4); MONOCYTES 5.5 % (2-11); NEUTROPHILS 73.6 % (40-80); PLATELET COUNT 127 10x3/uL (130-400); RBC 3.74 10x6/uL (4.00-5.40); RDW 14.4 % (11.5-14.5); WBC 4.9 10x3/uL (4.8-10.8)
--- NOTE | 2017-01-26 10:14 | NUR ---
VSS WITH CHEST PAIN DENIED. 5 FR EXOSEAL R/GROIN CDI NO BLEEDING NO HEMATOMA NOTED. DR MERCADO AT BEDSIDE
--- NOTE | 2017-01-26 10:45 | NUR ---
VSS WITH PAIN DENIED.5 FR EXOSEAL R/GROIN CDI NO BLEEDING NO HEMATOMA NOTED. INSTRUCTED PATIENT TO KEEP RLE STRAIGHT AND STILL
--- NOTE | 2017-01-26 11:03 | NUR ---
NO CHANGE IN ASSESSMENT FAMILY AT SIDE
--- NOTE | 2017-01-26 11:32 | NUR ---
PATIENT SLEEPING QUIETLY NO NAUSEA NO DISTRESS. 5 FR EXOSEAL R/GROIN CDI NO BLEEDING NO HEMATOMA NOTED
--- NOTE | 2017-01-26 11:43 | NUR ---
REPOSITIONED TO SITTING WITH HOB UP 30 DEGREES. 5 FR EXOSEAL R/GROIN CDI NO BLEEDING NO HEMATOMA NOTED.
--- NOTE | 2017-01-26 12:09 | NUR ---
PIV REMOVED WITH DRESSING APPLIED 5 FR EXOSEAL R/GROIN CDI NO BLEEDING NO HEMATOMA NOTED. PATIENT UP TO GET DRESSED FOR DISCHARGE
--- NOTE | 2017-01-26 12:43 | NUR ---
VERBAL AND DISCHARGE GONE OVER WITH PATIENT AND . CHEST PAIN DENIED WITH 5 FR EXOSEAL R/GROIN CDI NO BLEEDING NO HEMATOMA NOTED. LEFT VIA WC TO PARKING FOR TRANSPORT HOME
== END | disposition home or self-care (01) ==
LOC: D.CATH 05:54
PROVIDERS: Internal Medicine Cardiovascular Disease
DX: I25.10 Atherosclerotic heart disease of native coronary artery without angina pectoris (principal); Z95.5 Presence of coronary angioplasty implant and graft; Z01.812 Encounter for preprocedural laboratory examination; Z01.810 Encounter for preprocedural cardiovascular examination; I51.9 Heart disease, unspecified

== ENCOUNTER 2017-07-17 11:29 | Inpatient (IN) | payer MEDICARE ==
[2017-07-17 12:23] VITALS: BP 106/41; BMI 26.0
[2017-07-17] MEDS ORDERED: LEVAQUIN500 MG PO (12:38)
[2017-07-17] MEDS ORDERED: PREDNISONE5 MG PO (12:39)
[2017-07-17] MEDS ORDERED: LISINOPRIL10 MG PO (12:39)
[2017-07-17] MEDS ORDERED: PRAVASTATIN SOD10 MG (12:40)
[2017-07-17] MEDS ORDERED: DAPSONE100 MG PO (12:40)
[2017-07-17] MEDS ORDERED: MYFORTIC360 MG PO (12:41)
[2017-07-17] MEDS ORDERED: TACROLIMUS 1 MG PO (12:43)
[2017-07-17] MEDS ORDERED: VALCYTE450 MG PO (12:44)
--- NOTE | 2017-07-17 12:55 | NUR ---
ARRIVED FROM ADMISSIONS. NO DISTRESS. PT HAS AN INSULIN PUMP. SHE IS A KIDNEY TRANSPLANT. SEE ASSESSMENT FOR FURTHER EVAL
[2017-07-17 15:18] LABS: HEMATOCRIT 30.8 % (36.0-48.0); HEMOGLOBIN 9.8 g/dL (12-16); MCH 31.4 pg (26.0-34.0); MCHC 31.8 g/dL (31.0-37.0); MCV 98.7 fL (80.0-100.0); PLATELET COUNT 110 10x3/uL (130-400); RBC 3.12 10x6/uL (4.00-5.40); RDW 13.5 % (11.5-14.5); WBC 2.7 10x3/uL (4.8-10.8)
[2017-07-17 15:32] LABS: ANION GAP 13.9 mmol/L (8-16); CALCIUM 8.9 mg/dL (8.5-10.1); CARBON DIOXIDE 24.3 mmol/L (21.0-32.0); CREATININE - SERUM 1.8 mg/dL (0.6-1.3); POTASSIUM - SERUM 5.2 mmol/L (3.5-5.1)
[2017-07-17 16:00] VITALS: BP 122/47
--- NOTE | 2017-07-17 16:18 | NUR ---
IV ATTEMPTED X 2. VASCULAR ACCESS NURSE CALLED. PT REFUSES SCDS. SHE AMBULATES.
[2017-07-17 16:43] LABS: EOSINOPHILS 3 % (0-7); LYMPHOCYTES 15 % (15-50); NEUTROPHILS 83 % (40-80); PLATELET ESTIMATE DECREASED
--- NOTE | 2017-07-17 18:24 | NUR ---
CVL PLACEMENT DONE BY DR. ROUSE. EXPLAINED PROCEDURE TO PT AND FAMILY BOTH UNDERSTAND AND SIGNED CONSENT. TIME OUT PROCEDURE DOWN. CCVL PLACED IN L CHEST. PT TOLE WELL. CHEST XRAY DONE.
--- NOTE | 2017-07-17 18:26 | NUR ---
HAS ANTI REJECTION MEDS. PHARMACY CALLED .
[2017-07-17 19:00] VITALS: BP 116/44
--- NOTE | 2017-07-17 19:38 | NUR ---
RECEIVED REPORT, WILL ASSUME CARE OF PT, DENIES ANY NEEDS AT THIS TIME, BED IS LOW, SRX2, CALL LIGHT IN REACH, WILL CONTINUE PLAN OF CARE
[2017-07-18] VITALS: BP 133/55
[2017-07-18 03:25] LABS: APPEARANCE CLEAR (CLEAR); COLOR YELLOW (YELLOW)
[2017-07-18 03:26] LABS: BILIRUBIN NEGATIVE (NEGATIVE); GLUCOSE 50 mg/dL (NEGATIVE); KETONE NEGATIVE (NEGATIVE); NITRITE POSITIVE (NEGATIVE); PROTEIN TRACE mg/dL (NEGATIVE); SPECIFIC GRAVITY 1.015 (1.005-1.020); UROBILINOGEN NORMAL (NORMAL)
[2017-07-18 03:27] LABS: BACTERIA MODERATE /hpf (NONE SEEN); EPITHELIAL CELLS 0-5 /hpf (0-5); RED CELLS - URINE 0-5 /hpf (0-5); WHITE CELLS - URINE 0-5 /hpf (0-5)
[2017-07-18 04:00] VITALS: BP 147/62
--- NOTE | 2017-07-18 05:00 | NUR ---
RESTING IN BED WITH NO DISTRESS. CPOC.
--- NOTE | 2017-07-18 07:10 | NUR ---
RECEIVED REPORT. ASSUMED CARE OF PATIENT. CALL LIGHT WITHIN REACH. PATIENT IN REVERSE ISOLATION FOR WBC 2.7. PATIENT ALERT/ORIENTED, INSULIN PUMP PATENT AND LOCATED TO LEFT LOWER ABD. MALE VISITOR AT BEDSIDE. DENIES NEEDS AT THIS TIME. NO DISTRESS.
[2017-07-18 08:00] VITALS: BP 143/48
[2017-07-18 09:23] VITALS: BMI 25.5
[2017-07-18 10:37] LABS: BASOPHILS 0.4 % (0-2); EOSINOPHILS 0.9 % (0-7); HEMATOCRIT 28.8 % (36.0-48.0); HEMOGLOBIN 9.2 g/dL (12-16); IMMATURE GRANULOCYTES 12.8 % (0-5); LYMPHOCYTES 7.5 % (15-50); MCH 31.8 pg (26.0-34.0); MCHC 31.9 g/dL (31.0-37.0); MCV 99.7 fL (80.0-100.0); MEAN PLATELET VOLUME 11.3 fL (7.4-10.4); MONOCYTES 18.5 % (2-11); NEUTROPHILS 59.9 % (40-80); PLATELET COUNT 114 10x3/uL (130-400); RBC 2.89 10x6/uL (4.00-5.40); RDW 13.7 % (11.5-14.5); WBC 2.3 10x3/uL (4.8-10.8)
[2017-07-18 10:43] LABS: ALBUMIN 2.8 g/dL (3.4-5.0); BILIRUBIN - TOTAL 0.78 mg/dL (0.2-1.3); CALCIUM 8.7 mg/dL (8.5-10.1); CARBON DIOXIDE 20.1 mmol/L (21.0-32.0); CREATININE - SERUM 1.9 mg/dL (0.6-1.3); MAGNESIUM - SERUM 1.7 mg/dL (1.8-2.4); POTASSIUM - SERUM 5.1 mmol/L (3.5-5.1); PROTEIN - SERUM 5.9 g/dL (6.4-8.2)
--- NOTE | 2017-07-18 11:14 | NUR ---
PATIENT RESTING IN BED WITH EYES CLOSED. RESP EVEN AND UNLABORED. CALL LIGHT WITHIN REACH. IV FLUIDS INFUSING ORDERED. NO DISTRESS.
[2017-07-18 11:24] VITALS: BP 150/53
--- NOTE | 2017-07-18 11:41 | NUR ---
FSBS 221. PATIENT ADMINISTERS INSULIN VIA INSULIN PUMP. PATIENT STATED SHE WOULD ADMINISTER 10 UNITS. STAND BY ASSIST PROVIDED WHILE PATIENT OOB TO RESTROOM. IV FLUIDS INFUSING ORDERED. NO DISTRESSS.
[2017-07-18 16:00] VITALS: BP 110/47
--- NOTE | 2017-07-18 17:30 | NUR ---
FSBS 292. PATIENT ADMINISTERED 12 UNITS VIA INSULIN PUMP TO COVER THIS FSBS.
[2017-07-18] MEDS ORDERED: INDERAL10 MG PO (18:17)
[2017-07-18] MEDS ORDERED: VITAMIN D2000 UNIT PO (18:18)
[2017-07-18] MEDS ORDERED: TUMS500 MG PO (18:20)
[2017-07-18] MEDS ORDERED: FERROUS SULFAT325 MG PO (18:21)
[2017-07-18] MEDS ORDERED: COLACE100 MG PO (18:21)
--- NOTE | 2017-07-18 19:27 | NUR ---
PT SITTING UP IN BED, AWAKE, ALERT, ORIENTED, TALKING ON HER CELL PHONE. PT DENIES ANY NEEDS AT THIS TIME. CONTINUE TO MONITOR CLOSELY. BED LOW, CALL LIGHT IN REACH, SIDE RAILS X 2, HOB 35 DEGREES.
[2017-07-18 20:27] VITALS: BP 153/91
--- NOTE | 2017-07-18 20:43 | NUR ---
PT AWAKE, ALERT, ORIENTED, AT BEDSIDE. PT IS A GOOD HEALTH HISTORIAN ALONG WITH MR. ACE. WE DISCUSSED PTS MEDICATIONS, IN WHICH MR. ACE STATES PT TAKES FE 325MG AND CALCIUM CHEWS 1000MG BID @ 07:00 AND 19:00. AND PT BOTH STATED ALL OTHER MEDICATIONS WITH DOSAGE TIMES ARE CORRECT. PT DOES TAKE OTC CLARITIN 10MG QD PRN ALLERGIES, BUT I EXPLAINED TO PT THAT DUE TO OUR HOSPITAL FORMULARY, IT WAS CHANGED TO MARIE. PT AND DENY ANY NEEDS AT THIS TIME. I ALSO GAVE PT AND DR. LUBIN'S OFFICE NUMBER [phone] PER THEIR REQUEST SO THE MEDICAL STAFF IN [facility] CAN COLLABORATE WITH PHYSICIANS HERE. NO NEEDS AT THIS TIME. PT IS RUNNING A LOW GRADE TEMP OF 99.0 ORALLY, BUT NO CHANGE FROM PREVIOUS READINGS. CONTINUE TO MONITOR CLOSELY AND FREQUENTLY. PT REMAINS ON NEUTROPENIC PRECAUTIONS ORDERED.
--- NOTE | 2017-07-18 23:42 | NUR ---
FSBS WHEN CHECKED IS 259. PT WILL ADMINISTER HERSELF 11 UNITS PER HER INSULIN PUMP. PT IS PALE, LETHARGIC, STATES SHE JUST DOES NOT FEEL GOOD, BUT NO CHANGE FROM BEFORE. I ASKED PT IF SHE NEEDED SOMETHING TO SNACK ON SINCE SHE WILL BE GIVING HERSELF INSULIN, IN WHICH PT STATED NO. WILL CONTINUE TO MONITOR PT CLOSELY AND FREQUENTLY.
[2017-07-19 06:28] LABS: BASOPHILS 0.5 % (0-2); EOSINOPHILS 1.6 % (0-7); HEMATOCRIT 27.6 % (36.0-48.0); HEMOGLOBIN 8.8 g/dL (12-16); IMMATURE GRANULOCYTES 8.6 % (0-5); LYMPHOCYTES 8.6 % (15-50); MCH 31.4 pg (26.0-34.0); MCHC 31.9 g/dL (31.0-37.0); MCV 98.6 fL (80.0-100.0); MEAN PLATELET VOLUME 10.5 fL (7.4-10.4); MONOCYTES 21.1 % (2-11); NEUTROPHILS 59.6 % (40-80); PLATELET COUNT 128 10x3/uL (130-400); RDW 13.5 % (11.5-14.5)
--- NOTE | 2017-07-19 06:34 | NUR ---
AFTER REVIEWING TODAYS 0700 MEDS WITH PT, PT STATES SHE IS STILL MISSING TWO OF HER 0700 MEDICATIONS. THERE IS A COMPLETE PAPER LIST IN PT'S CHART. WILL REVIEW WITH DAY SHIFT NURSE.
[2017-07-19 06:45] LABS: ALBUMIN 2.5 g/dL (3.4-5.0); ANION GAP 15.6 mmol/L (8-16); BILIRUBIN - DIRECT 0.21 mg/dL (0.00-0.30); BILIRUBIN - INDIRECT 0.49 mg/dL (0.00-1.00); BILIRUBIN - TOTAL 0.7 mg/dL (0.2-1.3); CALCIUM 8.6 mg/dL (8.5-10.1); CARBON DIOXIDE 21.4 mmol/L (21.0-32.0); CREATININE - SERUM 1.5 mg/dL (0.6-1.3); MAGNESIUM - SERUM 1.7 mg/dL (1.8-2.4); PROTEIN - SERUM 5.7 g/dL (6.4-8.2)
[2017-07-19 06:46] LABS: WBC 1.9 10x3/uL (4.8-10.8)
--- NOTE | 2017-07-19 07:15 | NUR ---
REPORT RECEIVED. RR EVEN AND UNLABORED. PT IS RUNNING A SLIGHT ELEVATED TEMP THIS MORNING OF 99.1. PT DENIES FEELING FEVERISH, BUT REPORTS "NOT FEELING GOOD." WILL CTM.
[2017-07-19 07:43] VITALS: BP 156/55
--- NOTE | 2017-07-19 09:00 | NUR ---
CHANGED CVL DRESSING. STERILE FIELD MAINTAINED. INTITIALED AND DATED. NO S/S OF INFECTION NOTED AROUND THE SITE. WILL CTM.
--- NOTE | 2017-07-19 11:00 | NUR ---
PT RESTING QUIETLY, DR. LUBIN AT BEDSIDE DISCUSSING CARE. WILL CTM.
--- NOTE | 2017-07-19 11:30 | NUR ---
SPOKE TO DR. LUBIN REGARDING PTS HOME MEDS. HE PUT ORDERS IN TO RESTART A FEW OF HER HOME MEDS THAT WERE NOT RESTARTED. WILL GIVE AND CTM.
[2017-07-19 11:36] VITALS: BP 160/61
--- NOTE | 2017-07-19 12:50 | NUR ---
PT REPORTS BEING ALMOST OUT OF HER INSULIN IN HER INSULIN PUMP. REQUESTED THAT WE GIVE HER NOON DOSE WITH SLIDING SCALE INSULIN. DR. LUBIN GAVE VERBAL ORDER FOR HIGH RESISITANCE SS. WILL GIVE AND CTM. WHEN IN THE ROOM TO GIVE PT SS, SS ONLY CALLED FOR 12 UN. PT REQUESTED THE 16 UN, SAYING "I KNOW THAT WILL NOT DROP MY BS." WILL CTM.
[2017-07-19 13:16] LABS: CYTOMEGALOVIRUS AB IGG >10.00 U/mL (0.00-0.59)
[2017-07-19 15:09] VITALS: BP 144/62
--- NOTE | 2017-07-19 18:30 | NUR ---
PT RESTING QUIELTY, RR EVEN AND UNLABORED. FAMILY AT BEDSIDE. DENIES NEEDS AT THIS TIME. WILL GIVE REPORT ON PT CONDTION FOR THE DAY.
--- NOTE | 2017-07-19 18:30 | NUR ---
PTS FAMILY REQUESTING TO KNOW WHAT MEDS PT IS ON. PT SEEMS VERY AGITATED REGARDING PT NOT GETTING MEDS AT CERTAIN TIMES. EXPLAINED EACH MED PT WAS RECEVING AND WHAT TIME. PT AND FAMILY VERBALIZED UNDERSTANDING. SHE IS RECEIVING ALL OF HER HOME MEDS THAT ARE LISTED. REQUESTED PRINT OUT OF HOME MEDS. WILL GIVE AND CTM.
[2017-07-19 19:00] VITALS: BP 133/53
--- NOTE | 2017-07-19 20:37 | NUR ---
PT AWAKE, ALERT, ORIENTED, DENIES ANY NEEDS. PT STATES SHE DOES NOT FEEL LIKE HER MEDICATIONS ARE SCHEDULED CORRECTLY BUT HOPES SHE WILL BE GOING HOME SOON. WILL CONTINUE TO MONITOR CLOSELY.
[2017-07-20 00:35] VITALS: BP 151/58
[2017-07-20 04:55] VITALS: BP 153/62
[2017-07-20 05:26] LABS: BASOPHILS 1.1 % (0-2); EOSINOPHILS 1.6 % (0-7); HEMATOCRIT 27.7 % (36.0-48.0); HEMOGLOBIN 8.8 g/dL (12-16); IMMATURE GRANULOCYTES 11.6 % (0-5); LYMPHOCYTES 11.1 % (15-50); MCH 31.3 pg (26.0-34.0); MCHC 31.8 g/dL (31.0-37.0); MCV 98.6 fL (80.0-100.0); MEAN PLATELET VOLUME 10.5 fL (7.4-10.4); MONOCYTES 24.9 % (2-11); NEUTROPHILS 49.7 % (40-80); PLATELET COUNT 150 10x3/uL (130-400); RBC 2.81 10x6/uL (4.00-5.40); RDW 14.1 % (11.5-14.5)
--- NOTE | 2017-07-20 05:33 | NUR ---
PT AWAKE, ALERT, ORIENTED, DENIES ANY NEEDS. CONTINUE TO MONITOR CLOSELY.
[2017-07-20 05:39] LABS: WBC 1.9 10x3/uL (4.8-10.8)
[2017-07-20 05:50] LABS: ANION GAP 16.3 mmol/L (8-16); CALCIUM 8.6 mg/dL (8.5-10.1); CARBON DIOXIDE 21.4 mmol/L (21.0-32.0); CREATININE - SERUM 1.5 mg/dL (0.6-1.3); PHOSPHOROUS 3.3 mg/dL (2.5-4.9); POTASSIUM - SERUM 4.7 mmol/L (3.5-5.1)
--- NOTE | 2017-07-20 06:26 | NUR ---
PTS O2 ON ROOM AIR HAS BEEN IN THE HIGH 80%'S. I HAVE PLACED PT ON O2 VIA NC @ 2 LPM. CONTINUE TO MONITOR.
--- NOTE | 2017-07-20 07:35 | NUR ---
PT LAYING TO LEFT SIDE SLEEPING ARROUSES EASILY DENIES NEEDS WILL CONT TOMONITOR. PT IS IN NEUTROPENIC PRECAUTIONS.
[2017-07-20 08:00] VITALS: BP 172/60
--- NOTE | 2017-07-20 09:42 | NUR ---
PT GIVEN URINE CUP TO COLLECT CLEAN CATCH URINE, WILL CALL WHEN READY TO COLLECT
[2017-07-20 11:47] VITALS: BP 150/52
[2017-07-20 12:58] LABS: APPEARANCE CLEAR (CLEAR); COLOR YELLOW (YELLOW); GLUCOSE 1000 mg/dL (NEGATIVE); NITRITE NEGATIVE (NEGATIVE); PROTEIN NEGATIVE (NEGATIVE)
[2017-07-20 12:59] LABS: BILIRUBIN NEGATIVE (NEGATIVE); KETONE SMALL mg/dL (NEGATIVE); UROBILINOGEN NORMAL (NORMAL)
[2017-07-20 13:00] LABS: BACTERIA MODERATE /hpf (NONE SEEN); MUCUS <1+ /lpf (NONE SEEN); WHITE CELLS - URINE 0-5 /hpf (0-5)
--- NOTE | 2017-07-20 13:26 | NUR ---
PT LAYING TO LEFT SIDE WATCHING TV, DENIES NEEDS WILL CONT TO MONITOR
[2017-07-20 16:00] VITALS: BP 150/49
[2017-07-20 20:10] VITALS: BP 144/65
--- NOTE | 2017-07-20 21:08 | NUR ---
PT LYING IN BED, AWAKE, ALERT, FLAT AFFECT, STATES SHE JUST WANTS TO GO HOME. PT DEMONSTRATES GENERAL MALAISE, STATES SHE HAS NOT BEEN EATING WELL TODAY. PT IS EATING CHICKEN NOODLE SOUP AFTER I PLATEN PRESS FEEDER HER FSBS OF 99. PT DENIES ANY NEEDS, STATES THAT SHE JUST DOES NOT FEEL GOOD. WILL CONTINUE TO MONITOR CLOSELY.
[2017-07-21 00:34] VITALS: BP 163/69
[2017-07-21 04:32] VITALS: BP 162/59
[2017-07-21 06:03] LABS: BASOPHILS 0.5 % (0-2); EOSINOPHILS 2.1 % (0-7); HEMATOCRIT 26.7 % (36.0-48.0); HEMOGLOBIN 8.4 g/dL (12-16); IMMATURE GRANULOCYTES 11.3 % (0-5); LYMPHOCYTES 12.4 % (15-50); MCH 31.1 pg (26.0-34.0); MCHC 31.5 g/dL (31.0-37.0); MCV 98.9 fL (80.0-100.0); MEAN PLATELET VOLUME 10.4 fL (7.4-10.4); MONOCYTES 26.3 % (2-11); NEUTROPHILS 47.4 % (40-80); PLATELET COUNT 147 10x3/uL (130-400); RDW 14.3 % (11.5-14.5)
[2017-07-21 06:04] LABS: WBC 1.9 10x3/uL (4.8-10.8)
[2017-07-21 06:22] LABS: ANION GAP 14.3 mmol/L (8-16); CALCIUM 8.7 mg/dL (8.5-10.1); CARBON DIOXIDE 21.4 mmol/L (21.0-32.0); CREATININE - SERUM 1.5 mg/dL (0.6-1.3); PHOSPHOROUS 3.2 mg/dL (2.5-4.9); POTASSIUM - SERUM 4.7 mmol/L (3.5-5.1)
[2017-07-21 07:23] VITALS: BP 184/74
--- NOTE | 2017-07-21 07:30 | NUR ---
PT SITTING UP IN BED DENIES NEEDS, OTHER THAN HAT IN TOILET EMPTIED, DONE. WILL CONT TO MONITOR
--- NOTE | 2017-07-21 07:31 | NUR ---
PT BP IS HIGH THIS AM. PT STATES, "WELL I JUST NOW TOOK MY BP MEDS SO IT MAY TAKE A WHILE FOR THEM TO KICK IN". NOTED EMAR BP MEDICATION WAS SCANNED AND GIVEN, WILL CONT TO MONITOR
[2017-07-21] MEDS ORDERED: BACTRIM 400-801 TAB PO ×2 (10:48→11:48)
--- NOTE | 2017-07-21 10:52 | NUR ---
Nutrition Follow Up: Pt is eating 63% meal avg on a diabetic diet. +BM 07/19/17. Wt gain noted. Labs reviewed - glucose elevated. Meds noted including Prednisone, MV. Rec continue current diet. RD following.
[2017-07-21 11:20] VITALS: BP 169/63
--- NOTE | 2017-07-21 12:14 | DS ---
PATIENT:JULIO ACE :55 MEDICAL RECORD: [id number] DISCHARGE SUMMARY ADMISSION DATE: 07/17/17 DISCHARGE DATE: DATE OF ADMISSION: 07/17/2017 DATE OF DISCHARGE: 07/21/2017 HOSPITAL COURSE: This is a 62-year-old who was admitted with anorexia and nausea and a creatinine above her baseline of 1.8. She has a recent renal transplant as March of 2017. She has been feeling better. She is growing a gram-negative jayla and her urine results are pending. I do not have Rocephin available on IV for which she has had 5 days now. I am going to discharge her on Bactrim single strength 1 twice a day for 5 days and she is going to follow up on Monday or Monday at her transplant center. I did talk with her transplant blood tester fowl regarding her care on Monday. We did come up with a good plan regarding her symptoms. Her initial CMV PCR was negative. Flu screen was negative. Blood cultures have been negative. Renal ultrasound showed [id number]-[id number] hydronephrosis. I did discuss this with the transplant blood tester fowl in [place] as well as the urologist here. They were concerned and forth worth if this is an appropriate amount of hydronephrosis for a renal transplant. She will have this evaluated as well. I did not change any of her transplant medications. The only change in her medication is going to be the addition of Bactrim single strength 1 twice a day for 5 days. She had her tacrolimus dose lowered as her trough was 16. She will resume with her current dose and have her tacrolimus level checked with her transplant seen. She was pancytopenic, but she did not have an absolute neutrophil count less than 500. I did keep her on neutropenia precautions to be careful. PHYSICAL EXAMINATION: VITAL SIGNS: Stable, afebrile. Alert and oriented times 3. HEENT: Normocephalic. Clear nares. Clear throat. LUNGS: Grossly clear except some mild crackles at the bases. ABDOMEN: nontender in all 4 quadrants. No appreciable hepatosplenomegaly. She did not have anything other than interstitial changes on her chest x-ray that did not mention that it was consistent with PCP pneumonia. PLAN: Discharge to home. TRANSINT:[id number] Voice Confirmation ID: [id number] DOCUMENT ID: [id number] DISCHARGE SUMMARY REPORT [id number] JULIO ACE DAVID MD at 1214 CC: [id number] DICTATION DATE: 07/21/17 1051 CUSTOMER EXPERIENCE MANAGER: 07/21/17 1201 ADM IN [facility] [address] [id number]
--- NOTE | 2017-07-21 12:39 | NUR ---
DC PT CVL ORDERED. REMOVED WITH 2 STICHES FULLY INTACT. DC CVL WITH CATH TIP INTACT, HELD PRESSURE FOR 5 MINUTES. NO BLEEDING NOTED. APPLIED 4X4 TEGADERM DSNG, CDI. PT SAYS HER WONT BE HERE FOR A WHILE, BUT SHE WILL NOTIFY STAFF WHEN HE ARRIVES.
--- NOTE | 2017-07-21 13:46 | NUR ---
Patient Name: JULIO ACE Admission Status: Elective Accout number: [id number] Admission Date: 07-17-2017 : 1955 Admission Diagnosis: Attending: Gil Montano Current LOS: 4 Anticipated DC Date: 07-21-2017 Planned Disposition: Home Primary Insurance: MEDICARE A & B Discharge Planning Comments: * Is the patient Alert and Oriented? Yes 0 * How many steps to enter\exit or inside your home? 2 0 * PCP DR. BELL 0 * Pharmacy [facility] AT [facility]. 0 * Preadmission Environment Home with Family 0 * ADLs Independent 0 * Equipment Glucometer 0 * Other Equipment NO MEDICAL EQUIPMENT PROVIDER PREFERENCE 0 * List name and contact numbers for known caregivers / representatives who currently or will assist patient after discharge: NIVIA ACE, SPOUSE, 0 * Community resources currently utilized None 0 * Please name any agencies selected above. NONE 0 * Additional services required to return to the preadmission environment? No 0 * Can the patient safely return to the preadmission environment? Yes 0 * Has this patient been hospitalized within the prior 30 days at any hospital? No 0 CM MET WITH PT IN ROOM TO DISCUSS DISCHARGE PLANNING AND NEEDS. PT REPORTS LIVING AT HOME INDEPENDENTLY WITH HER SPOUSE. PT HAS GLUCOMETER AND NO MEDICAL EQUIPMENT PROVIDER PREFERENCE. PT HAS NO OUTSIDE SERVICES ASSISTING IN THE HOME. CM DISCUSSED AVAILABILITY OF HOME HEALTH, REHAB SERVICES AND MEDICAL EQUIPMENT. PT DENIES DISCHARGE NEEDS, REPORTS HER SPOUSE WILL PICK HER UP FOR DISCHARGE HOME LATER TODAY. IMPORTANT MESSAGE FROM MEDICARE PROVIDED AND EXPLAINED. Maintenance Analyst: David Ruiz
--- NOTE | 2017-07-21 14:08 | NUR ---
WENT OVER DC PAPERWORK WITH PT PT VERBALIZES UNDERSTANDING. PT IS WAITING ON HER TO GET OFF WORK TO PICK HER UP.
--- NOTE | 2017-07-21 15:56 | NUR ---
PT HAS NOT EXPRESSED THIS COMPLAINT TO ME, BUT DR LUBIN AND CRUZITO CASE MANAGEMENT SAID THAT PT WAS UPSET THAT HER MEDICATIONS WERENT BEING GIVEN AT THE EXACT TIMES THAT SHE TAKES THEM AT HOME. DR LUBIN SAID THAT HE EXPLAINED TO PT THAT SHE DID NOT NEED HER MEDICATIONS SHE WAS WORRIED ABOUT GIVEN AT CERTAIN TIMES AND THAT THE TIMES WE HAD THEM SCHEDULED WERE FINE. PT VERBALIZED UNDERSTANDING.
[2017-07-21 16:06] VITALS: BP 148/61
--- NOTE | 2017-07-21 18:01 | NUR ---
PT REFUSED TO TAKE HER MEDICATIONS AT 1900, WANTS TO TAKE THEM WHEN SHE GETS HOME. SAYS HER SHOULD BE HERE ANY MINUTE TO TAKE HER HOME. INSTRUCTED TO CALL WHEN SHES READY
--- NOTE | 2017-07-21 18:30 | NUR ---
PT WAS WHEELED OUT BY NATE
[2017-07-23 19:07] LABS: AEROBE ID Final report (())
[2017-07-26 09:15] LABS: CMV QUANT DNA PCR (PLASMA) Negative (Negative)
== END 2017-07-21 18:40 | disposition home or self-care (01) | DRG 808 ==
LOC: D.M2 11:29 → D.SDCHOLD 14:37 → D.M2 14:38
PROVIDERS: ADMIT Internal Medicine Nephrology
PROC: 02HV33Z Insertion of Infusion Device into Superior Vena Cava, Percutaneous Approach (ICD-10-PCS; principal; 2017-07-17)
DX: D61.818 Other pancytopenia (principal); N18.6 End stage renal disease; N39.0 Urinary tract infection, site not specified; N17.9 Acute kidney failure, unspecified; I12.0 Hypertensive chronic kidney disease with stage 5 chronic kidney disease or end stage renal disease; Z94.0 Kidney transplant status; N13.30 Unspecified hydronephrosis; E11.22 Type 2 diabetes mellitus with diabetic chronic kidney disease; Z79.4 Long term (current) use of insulin; I25.10 Atherosclerotic heart disease of native coronary artery without angina pectoris; E78.5 Hyperlipidemia, unspecified; Z95.5 Presence of coronary angioplasty implant and graft; Z86.73 Personal history of transient ischemic attack (TIA), and cerebral infarction without residual deficits; Z87.891 Personal history of nicotine dependence; R63.0 Anorexia; Z68.26 Body mass index [BMI] 26.0-26.9, adult

== ENCOUNTER 2017-08-18 17:45 | Emergency (ER) | payer MEDICARE ==
[~2017-08-18 17:45] MED LIST changes: +BACTRIM 400-801 TAB PO; +COLACE100 MG PO; +DAPSONE100 MG PO; +INDERAL10 MG PO; +LISINOPRIL10 MG PO; +MYFORTIC360 MG PO; +PRAVASTATIN SOD10 MG; +PREDNISONE5 MG PO; +TACROLIMUS 1 MG PO; +TUMS500 MG PO; +VALCYTE450 MG PO
== END 2017-08-18 21:39 | disposition home or self-care (01) ==
LOC: D.ER 17:45
DX: E11.649 Type 2 diabetes mellitus with hypoglycemia without coma (principal); N18.6 End stage renal disease

== ENCOUNTER → 2017-10-11 13:50 | Outpatient (CLI) | payer MEDICARE ==
[2017-10-11 14:56] LABS: BASOPHILS 0.2 % (0-2); EOSINOPHILS 0.5 % (0-7); HEMATOCRIT 40.7 % (36.0-48.0); HEMOGLOBIN 13.3 g/dL (12-16); IMMATURE GRANULOCYTES 0.2 % (0-5); LYMPHOCYTES 8.5 % (15-50); MCH 30.6 pg (26.0-34.0); MCHC 32.7 g/dL (31.0-37.0); MCV 93.8 fL (80.0-100.0); MEAN PLATELET VOLUME 10.4 fL (7.4-10.4); MONOCYTES 5.1 % (2-11); NEUTROPHILS 85.5 % (40-80); PLATELET COUNT 159 10x3/uL (130-400); RBC 4.34 10x6/uL (4.00-5.40); RDW 13.3 % (11.5-14.5); WBC 5.7 10x3/uL (4.8-10.8)
[2017-10-11 15:00] LABS: CREATININE - URINE 94.7 mg/dL (30-125); PRO/CRE RATIO URINE 0.3 mg/g; PROTEIN - URINE 30.5 mg/dL (0.0-11.9)
[2017-10-11 15:12] LABS: APPEARANCE CLEAR (CLEAR); BILIRUBIN NEGATIVE (NEGATIVE); COLOR YELLOW (YELLOW); GLUCOSE NEGATIVE (NEGATIVE); KETONE NEGATIVE (NEGATIVE); NITRITE NEGATIVE (NEGATIVE); PROTEIN NEGATIVE (NEGATIVE); UROBILINOGEN NORMAL (NORMAL)
[2017-10-11 15:16] LABS: ALBUMIN 3.6 g/dL (3.4-5.0); ANION GAP 13.7 mmol/L (8-16); BILIRUBIN - TOTAL 0.54 mg/dL (0.2-1.3); CALCIUM 9.7 mg/dL (8.5-10.1); CARBON DIOXIDE 26.9 mmol/L (21.0-32.0); CREATININE - SERUM 1.4 mg/dL (0.6-1.3); MAGNESIUM - SERUM 1.7 mg/dL (1.8-2.4); PHOSPHOROUS 3.7 mg/dL (2.5-4.9); POTASSIUM - SERUM 4.6 mmol/L (3.5-5.1); PROTEIN - SERUM 7.4 g/dL (6.4-8.2)
[2017-10-15 20:07] LABS: BK QN PCR LOG10 (URINE) 5.959 (())
== END | disposition home or self-care (01) ==
LOC: D.LAB 13:50
PROVIDERS: Family Medicine; Nurse Practitioner Family
DX: Z94.0 Kidney transplant status (principal); D64.9 Anemia, unspecified; E83.39 Other disorders of phosphorus metabolism; E83.42 Hypomagnesemia

== ENCOUNTER → 2017-10-19 15:06 | Outpatient (CLI) | payer MEDICARE | END | disposition home or self-care (01) | LOC: D.MAMMO 07-28 11:00 | DX: R92.8 Other abnormal and inconclusive findings on diagnostic imaging of breast (principal) ==

== ENCOUNTER → 2017-10-30 14:18 | Outpatient (CLI) | payer MEDICARE ==
[2017-11-01 13:18] LABS: BK QN PCR LOG10 2.491 (())
== END | disposition home or self-care (01) ==
LOC: D.LAB 14:18
PROVIDERS: Family Medicine
DX: Z94.0 Kidney transplant status (principal)

== ENCOUNTER → 2017-12-28 16:39 | Outpatient (CLI) | payer MEDICARE | END | disposition home or self-care (01) | LOC: D.MAMMO 15:00 | DX: Z12.31 Encounter for screening mammogram for malignant neoplasm of breast (principal) ==

== ENCOUNTER → 2018-07-04 09:36 | Outpatient (CLI) | payer MEDICARE ==
[2018-07-04 10:54] LABS: BASOPHILS 0.6 % (0-2); HEMATOCRIT 42.2 % (36.0-48.0); HEMOGLOBIN 13.9 g/dL (12-16); IMMATURE GRANULOCYTES 0.2 % (0-5); LYMPHOCYTES 19.6 % (15-50); MCH 29.9 pg (26.0-34.0); MCHC 32.9 g/dL (31.0-37.0); MCV 90.8 fL (80.0-100.0); MEAN PLATELET VOLUME 10.7 fL (7.4-10.4); MONOCYTES 9.1 % (2-11); NEUTROPHILS 64.5 % (40-80); PLATELET COUNT 164 10x3/uL (130-400); RBC 4.65 10x6/uL (4.00-5.40); RDW 13.3 % (11.5-14.5); WBC 4.8 10x3/uL (4.8-10.8)
[2018-07-04 10:56] LABS: CREATININE - URINE 38.7 mg/dL (30-125); PROTEIN - URINE 15.3 mg/dL (0.0-11.9)
[2018-07-04 10:57] LABS: ALBUMIN 3.4 g/dL (3.4-5.0); ANION GAP 13.3 mmol/L (8-16); BILIRUBIN - TOTAL 0.41 mg/dL (0.2-1.3); CALCIUM 9.5 mg/dL (8.5-10.1); CARBON DIOXIDE 28.1 mmol/L (21.0-32.0); CHOL - HDL RATIO 2.3 ratio (2.3-4.1); CREATININE - SERUM 1.3 mg/dL (0.6-1.3); LDL-HDL RATIO 1.1 ratio (1.5-3.5); MAGNESIUM - SERUM 1.8 mg/dL (1.8-2.4); PHOSPHOROUS 3.8 mg/dL (2.5-4.9); POTASSIUM - SERUM 4.4 mmol/L (3.5-5.1); PROTEIN - SERUM 7.1 g/dL (6.4-8.2)
[2018-07-06 11:18] LABS: TACROLIMUS - LABCORP 4.2 ng/mL (2.0-20.0)
[2018-07-06 13:18] LABS: BK QUANTITATION PCR Negative (Negative)
== END | disposition home or self-care (01) ==
LOC: D.LAB 09:36
PROVIDERS: Family Medicine
DX: Z94.0 Kidney transplant status (principal); E83.39 Other disorders of phosphorus metabolism; E83.42 Hypomagnesemia; D64.9 Anemia, unspecified

== ENCOUNTER → 2018-10-10 08:51 | Outpatient (CLI) | payer MEDICARE ==
[2018-10-10 10:39] LABS: BASOPHILS 0.6 % (0-2); EOSINOPHILS 4.6 % (0-7); HEMATOCRIT 41.8 % (36.0-48.0); HEMOGLOBIN 13.9 g/dL (12-16); IMMATURE GRANULOCYTES 0.4 % (0-5); LYMPHOCYTES 20.8 % (15-50); MCH 30.3 pg (26.0-34.0); MCHC 33.3 g/dL (31.0-37.0); MCV 91.1 fL (80.0-100.0); MEAN PLATELET VOLUME 10.8 fL (7.4-10.4); NEUTROPHILS 66.6 % (40-80); PLATELET COUNT 156 10x3/uL (130-400); RBC 4.59 10x6/uL (4.00-5.40); RDW 13.6 % (11.5-14.5); WBC 7.1 10x3/uL (4.8-10.8)
[2018-10-10 10:52] LABS: CREATININE - URINE 52.7 mg/dL (30-125); PRO/CRE RATIO URINE 0.2 mg/g; PROTEIN - URINE 11.8 mg/dL (0.0-11.9)
[2018-10-10 11:01] LABS: ALBUMIN 3.6 g/dL (3.4-5.0); ANION GAP 15.1 mmol/L (8-16); BILIRUBIN - TOTAL 0.48 mg/dL (0.2-1.3); CALCIUM 9.1 mg/dL (8.5-10.1); CARBON DIOXIDE 25.9 mmol/L (21.0-32.0); CREATININE - SERUM 1.3 mg/dL (0.6-1.3); MAGNESIUM - SERUM 1.8 mg/dL (1.8-2.4); PHOSPHOROUS 3.7 mg/dL (2.5-4.9); PROTEIN - SERUM 7.4 g/dL (6.4-8.2)
[2018-10-10 11:54] LABS: APPEARANCE CLOUDY (CLEAR); COLOR YELLOW (YELLOW); NITRITE POSITIVE (NEGATIVE); PROTEIN NEGATIVE (NEGATIVE)
[2018-10-10 11:55] LABS: BACTERIA MANY /hpf (NONE SEEN); BILIRUBIN NEGATIVE (NEGATIVE); EPITHELIAL CELLS 0-5 /hpf (0-5); GLUCOSE 100 mg/dL (NEGATIVE); KETONE NEGATIVE (NEGATIVE); UROBILINOGEN NORMAL (NORMAL)
[2018-10-11 13:19] LABS: C-PEPTIDE 0.2 ng/mL (1.1-4.4)
[2018-10-12 12:19] LABS: GAD-65 AUTOANTIBODY 5.3 U/mL (0.0-5.0)
[2018-10-17 12:19] LABS: INSULIN ANTIBODIES <5.0 uU/mL (())
[2018-10-19 03:10] LABS: IA2 AUTOANTIBODIES (LABCORP) 2.1 U/mL (())
== END | disposition home or self-care (01) ==
LOC: D.LAB 08:51
PROVIDERS: Family Medicine
DX: Z94.0 Kidney transplant status (principal)

== ENCOUNTER → 2019-01-01 18:51 | Outpatient (CLI) | payer MEDICARE | END | disposition home or self-care (01) | LOC: D.MAMMO 18:51 | DX: Z12.31 Encounter for screening mammogram for malignant neoplasm of breast (principal) ==

== ENCOUNTER → 2019-01-17 12:26 | Outpatient (CLI) | payer MEDICARE | END | disposition home or self-care (01) | LOC: D.HCCARDIO 12:26 | PROVIDERS: ATTEND Internal Medicine Cardiovascular Disease | DX: I25.10 Atherosclerotic heart disease of native coronary artery without angina pectoris (principal) ==

== ENCOUNTER → 2020-01-28 13:37 | Outpatient (CLI) | payer MEDICARE | END | disposition home or self-care (01) | LOC: D.HCCECHO 13:37 | PROVIDERS: ATTEND Internal Medicine Cardiovascular Disease | DX: I34.0 Nonrheumatic mitral (valve) insufficiency (principal); I25.10 Atherosclerotic heart disease of native coronary artery without angina pectoris ==

== ENCOUNTER → 2020-02-18 21:24 | Outpatient (CLI) | payer MEDICARE | END | disposition home or self-care (01) | LOC: D.MAMMO 01-15 09:45 | PROVIDERS: ATTEND Family Medicine | DX: Z12.31 Encounter for screening mammogram for malignant neoplasm of breast (principal) ==

== ENCOUNTER → 2020-03-25 06:29 | Outpatient (CLI) | payer MEDICARE ==
[2020-03-25 07:38] LABS: BASOPHILS 0.6 % (0-2); EOSINOPHILS 3.6 % (0-7); HEMATOCRIT 45.1 % (36.0-48.0); HEMOGLOBIN 14.5 g/dL (12-16); IMMATURE GRANULOCYTES 0.6 % (0-5); LYMPHOCYTES 35.6 % (15-50); MCHC 32.2 g/dL (31.0-37.0); MCV 93.4 fL (80.0-100.0); MEAN PLATELET VOLUME 11.1 fL (7.4-10.4); MONOCYTES 12.6 % (2-11); PLATELET COUNT 158 10x3/uL (130-400); RBC 4.83 10x6/uL (4.00-5.40); RDW 13.5 % (11.5-14.5); WBC 4.7 10x3/uL (4.8-10.8)
[2020-03-25 07:45] LABS: CREATININE - URINE 84.3 mg/dL (30-125); PRO/CRE RATIO URINE 0.1 mg/g; PROTEIN - URINE 12.5 mg/dL (0.0-11.9)
[2020-03-25 07:53] LABS: ALBUMIN 3.8 g/dL (3.4-5.0); ANION GAP 11.2 mmol/L (8-16); BILIRUBIN - TOTAL 0.49 mg/dL (0.2-1.3); CALCIUM 9.6 mg/dL (8.5-10.1); CREATININE - SERUM 1.3 mg/dL (0.6-1.3); POTASSIUM - SERUM 4.2 mmol/L (3.5-5.1); PROTEIN - SERUM 7.3 g/dL (6.4-8.2)
[2020-03-25 08:31] LABS: BACTERIA FEW /hpf (NEGATIVE); BILIRUBIN NEGATIVE (NEGATIVE); EPITHELIAL CELLS 0-5 /hpf (0-5); GLUCOSE NEGATIVE (NEGATIVE); KETONE NEGATIVE (NEGATIVE); NITRITE NEGATIVE (NEGATIVE); RED CELLS - URINE RARE /hpf (0-5); UROBILINOGEN NORMAL (NORMAL)
== END | disposition home or self-care (01) ==
LOC: D.LAB 06:29
DX: Z94.0 Kidney transplant status (principal)

== ENCOUNTER 2020-07-02 21:31 | Inpatient (IN) | payer MEDICARE ==
[~2020-07-02] VITALS: Ht 165.1 cm; Wt 81.8 kg
[~2020-07-02 21:31] MED LIST changes: -INDERAL10 MG PO; -PRAVASTATIN SOD10 MG; +PROPRANOLOL HCL20 MG PO
[2020-07-02] MEDS ORDERED: FAMOTIDINE10 MG PO (21:39)
[2020-07-02] MEDS ORDERED: PROCARDIA10 MG PO (21:40)
[2020-07-02] MEDS ORDERED: FUROSEMIDE20 MG PO (21:43)
[2020-07-02 22:30] LABS: BASOPHILS 0 % (0-2); EOSINOPHILS 0 % (0-7); HEMOGLOBIN 15.6 g/dL (12-16); IMMATURE GRANULOCYTES 0.2 % (0-5); MCH 29.9 pg (26.0-34.0); MCHC 33.2 g/dL (31.0-37.0); MEAN PLATELET VOLUME 10.4 fL (7.4-10.4); MONOCYTES 7.1 % (2-11); NEUTROPHILS 76.7 % (40-80); RBC 5.22 10x6/uL (4.00-5.40); RDW 13.3 % (11.5-14.5); WBC 6.5 10x3/uL (4.8-10.8)
[2020-07-02 22:34] LABS: PLATELET COUNT 123 10x3/uL (130-400)
[2020-07-02 22:45] LABS: INR 1.07 (0.85-1.17); PROTIME 13.8 SECONDS (11.6-15.0)
[2020-07-02 22:47] LABS: CALC OSMOLALITY 278 mosm/kg (275-300); CALCIUM 9.1 mg/dL (8.5-10.1); CARBON DIOXIDE 23.9 mmol/L (21.0-32.0); CHLORIDE - SERUM 103 mmol/L (98-107); CREATININE - SERUM 1.5 mg/dL (0.6-1.3); POTASSIUM - SERUM 4.6 mmol/L (3.5-5.1); SODIUM 136 mmol/L (136-145); UREA NITROGEN 29 mg/dL (7-18); eGFR NON AFRICAN AMERICAN 37 mL/min (90-120)
[2020-07-02 22:49] LABS: GLUCOSE 112 mg/dL (74-106)
[2020-07-02 23:12] LABS: ALBUMIN 3.5 g/dL (3.4-5.0); ALKALINE PHOSPHATASE 66 U/L (30-120); ALT (SGPT) 36 U/L (10-68); CKMB 1.3 U/L (0.0-3.6); CREATINE KINASE 144 UL (21-215); PRO BNP 3295 pg/mL (0-125); PROTEIN - SERUM 7.5 g/dL (6.4-8.2)
[2020-07-02 23:14] LABS: TROPONIN-I 0.093 ng/mL (0.000-0.060)
[2020-07-02 23:31] VITALS: BP 143/57
--- NOTE | 2020-07-02 23:37 | NUR ---
PT GIVEN ICE WATER AND HEAD OF BED ADJUSTED TO LEVEL OF COMFORT. PT DENIES FURTHER NEEDS AT THIS TIME. CALL LIGHT IN REACH. PT ON MONITOR.
[2020-07-02 23:38] LABS: BILIRUBIN NEGATIVE (NEGATIVE); KETONE MODERATE mg/dL (NEGATIVE); NITRITE POSITIVE (NEGATIVE); UROBILINOGEN NORMAL mg/dL (< 2)
[2020-07-02 23:43] LABS: BACTERIA MANY HPF (NONE SEEN); EPITHELIAL CELLS 0-5 /hpf (0-5)
[2020-07-02 23:57] LABS: CALC OSMOLALITY 280 mosm/kg (275-300); CALCIUM 8.7 mg/dL (8.5-10.1); CHLORIDE - SERUM 103 mmol/L (98-107); CKMB 1.6 U/L (0.0-3.6); CREATINE KINASE 149 UL (21-215); CREATININE - SERUM 1.6 mg/dL (0.6-1.3); GLUCOSE 113 mg/dL (74-106); MAGNESIUM - SERUM 1.7 mg/dL (1.8-2.4); POTASSIUM - SERUM 4.7 mmol/L (3.5-5.1); SODIUM 137 mmol/L (136-145); UREA NITROGEN 30 mg/dL (7-18); eGFR NON AFRICAN AMERICAN 34 mL/min (90-120)
[2020-07-02 23:58] LABS: TROPONIN-I 0.064 ng/mL (0.000-0.060)
[2020-07-03] VITALS (9 sets, daily range): BP systolic 126–188; BP diastolic 49–73; Ht 165.1 cm; Wt 81.8 kg
--- NOTE | 2020-07-03 01:22 | NUR ---
PT'S IV ZITHROMAX FINISHED AT THIS TIME.
--- NOTE | 2020-07-03 02:33 | NUR ---
ANSWERED PT'S CALL LIGHT. PT GIVEN MORE ICE WATER AND ANOTHER BLANKET. PT DENIES FURTHER NEEDS. PT ON MONITOR, CALL LIGHT IN REACH.
--- NOTE | 2020-07-03 04:18 | NUR ---
PT RESTING QUIETLY WITH EYES CLOSED, RR EVEN AND UNLABORED, VSS. PT ON MONITOR. CALL LIGHT IN REACH.
--- NOTE | 2020-07-03 05:43 | NUR ---
PT ASSISTED WITH BEDPAN. DENIES FURTHER NEEDS. CALL LIGHT IN REACH.
[2020-07-03 06:11] LABS: BASOPHILS 0 % (0-2); EOSINOPHILS 0 % (0-7); HEMATOCRIT 47.2 % (36.0-48.0); HEMOGLOBIN 15.2 g/dL (12-16); IMMATURE GRANULOCYTES 0.2 % (0-5); LYMPHOCYTES 25.3 % (15-50); MCH 29.2 pg (26.0-34.0); MCHC 32.2 g/dL (31.0-37.0); MCV 90.6 fL (80.0-100.0); MEAN PLATELET VOLUME 10.4 fL (7.4-10.4); MONOCYTES 6.8 % (2-11); NEUTROPHILS 67.7 % (40-80); PLATELET COUNT 119 10x3/uL (130-400); RBC 5.21 10x6/uL (4.00-5.40); RDW 13.4 % (11.5-14.5); WBC 6.6 10x3/uL (4.8-10.8)
[2020-07-03 06:40] LABS: ALBUMIN 3.5 g/dL (3.4-5.0); ALKALINE PHOSPHATASE 64 U/L (30-120); ALT (SGPT) 35 U/L (10-68); BILIRUBIN - TOTAL 0.48 mg/dL (0.2-1.3); CALC OSMOLALITY 280 mosm/kg (275-300); CALCIUM 9.2 mg/dL (8.5-10.1); CARBON DIOXIDE 24.2 mmol/L (21.0-32.0); CHLORIDE - SERUM 104 mmol/L (98-107); CKMB 1.9 U/L (0.0-3.6); CREATINE KINASE 145 UL (21-215); CREATININE - SERUM 1.5 mg/dL (0.6-1.3); GLUCOSE 82 mg/dL (74-106); MAGNESIUM - SERUM 1.8 mg/dL (1.8-2.4); POTASSIUM - SERUM 4.3 mmol/L (3.5-5.1); PROTEIN - SERUM 7.5 g/dL (6.4-8.2); SODIUM 138 mmol/L (136-145); UREA NITROGEN 29 mg/dL (7-18); eGFR NON AFRICAN AMERICAN 37 mL/min (90-120)
[2020-07-03 06:41] LABS: TROPONIN-I 0.088 ng/mL (0.000-0.060)
--- NOTE | 2020-07-03 07:30 | NUR ---
ASSUMED CARE OF PT. RESTING IN BED WITH EYES CLOSED. AROUSES EASILY. DENIES C/O TEMP SL ELEVATED. MED PER PRN ORDERS. SKIN W//D/P. RESP EMMY /UNLABORED. BREAKFAST SERVED "I'M NOT REAL HUNGRY. IT DOESN'T LOOK VERY GOOD" ENCOURAGED TO EAT SOMETHING D/T LOW BS AND MEDS. VERB UNDER AND FEW SIPS OF OJ AND BECKY CRACKERS CONSUMED
--- NOTE | 2020-07-03 09:36 | NUR ---
NOTIFIED JUANJO OF CONSULT
--- NOTE | 2020-07-03 11:46 | NUR ---
FSBS 255
[2020-07-03 12:20] LABS: CKMB 1.3 U/L (0.0-3.6); CREATINE KINASE 130 UL (21-215)
--- NOTE | 2020-07-03 12:44 | NUR ---
DR WATSON CALLED RE: PTS CONCERN RE: ANTIREJECTION MEDICATIONS. DR WATSON REPORTS HE IS COMING IN APPROX 10 MINUTS AND WILL DISCUSS WITH PT
--- NOTE | 2020-07-03 15:16 | NUR ---
REPORT CALLED TO TAL CRESPO
--- NOTE | 2020-07-03 15:35 | NUR ---
ADMITTED TO ROOM #2124, CONDITION STABLE
--- NOTE | 2020-07-03 16:48 | NUR ---
1600--ADMIT FROM ER TO ROOM 2124/WHEELCHAIR, PT IS AWAKE, ALERT, ORIENTED, SKIN WARM DRY. ANSWERS ALL QUESTIONS APPROPRIATELY. DENIES ANY NEEDS AT THIS TIME.
--- NOTE | 2020-07-03 18:58 | NUR ---
1800-PT C/O BEING COLD CHANGED PT'S AIR CONDITIONER SETTINGS, BROUGHT A WARM BLANKET AND ICE WATER/REQUEST, NO FURTHER NEEDS VOICED AT THIS TIME.
--- NOTE | 2020-07-03 18:59 | NUR ---
171-CONTACTED NURSE NIC FRAUSTO REGARDING THIS PT'S HOME MEDS--LEFT A MESSAGE AND AWAITING A CALL BACK.
--- NOTE | 2020-07-03 19:30 | NUR ---
PT IN BED, AAO X 3, RESP EVEN AND UNLABORED, NO DISTRESS NOTED, SR UP X 2, CL IN REACH.
[2020-07-03] MEDS ORDERED: ZETIA10 MG PO (21:40)
[2020-07-04 00:33] VITALS: BP 136/57
[2020-07-04 04:30] VITALS: BP 106/51
[2020-07-04 05:50] LABS: BASOPHILS 0.3 % (0-2); EOSINOPHILS 0 % (0-7); HEMATOCRIT 44.1 % (36.0-48.0); HEMOGLOBIN 14.3 g/dL (12-16); IMMATURE GRANULOCYTES 0.5 % (0-5); LYMPHOCYTES 36.6 % (15-50); MCH 29.5 pg (26.0-34.0); MCHC 32.4 g/dL (31.0-37.0); MCV 90.9 fL (80.0-100.0); MEAN PLATELET VOLUME 10.3 fL (7.4-10.4); MONOCYTES 10.4 % (2-11); NEUTROPHILS 52.2 % (40-80); PLATELET COUNT 114 10x3/uL (130-400); RBC 4.85 10x6/uL (4.00-5.40); RDW 13.5 % (11.5-14.5)
--- NOTE | 2020-07-04 06:01 | NUR ---
I have reviewed this patient and I concur with the Shift Assessment completed by the Licensed Practical Nurse today this shift.
[2020-07-04 06:13] LABS: WBC 3.9 10x3/uL (4.8-10.8)
[2020-07-04 06:17] LABS: ANION GAP 13.5 mmol/L (8-16); BILIRUBIN - TOTAL 0.37 mg/dL (0.2-1.3); CALCIUM 8.6 mg/dL (8.5-10.1); CARBON DIOXIDE 23.6 mmol/L (21.0-32.0); CREATININE - SERUM 1.2 mg/dL (0.6-1.3); MAGNESIUM - SERUM 1.8 mg/dL (1.8-2.4); POTASSIUM - SERUM 4.1 mmol/L (3.5-5.1); PROTEIN - SERUM 6.7 g/dL (6.4-8.2)
[2020-07-04 07:55] LABS: BILIRUBIN NEGATIVE (NEGATIVE); KETONE NEGATIVE (NEGATIVE); NITRITE NEGATIVE (NEGATIVE); UROBILINOGEN NORMAL mg/dL (< 2)
[2020-07-04 07:56] LABS: BACTERIA FEW HPF (NONE SEEN)
[2020-07-04 08:00] VITALS: BP 149/63
[2020-07-04] MEDS ORDERED: TACROLIMUS ANHYD1 MG PO (08:50)
[2020-07-04] MEDS ORDERED: OMNICEF300 MG PO (09:37)
--- NOTE | 2020-07-04 11:20 | NUR ---
BLOOD SUGAR OF 156, 2UNITS OF INSULIN GIVEN PER S.S PT WAITING ON DISCHARGE PAPERS, DENIES ANY NEEDS AT THIS TIME. CALL LIGHT IN REACH.
--- NOTE | 2020-07-04 11:56 | NUR ---
PROVIDED VERBAL AND WRITTEN DISHCARGE TEACHING TO PT WHO VERBALIZED UNDERSTANDING REGARDING TEACHING. D/C LT FA IV WITH CATHETER TIP INTACT. PT WAITING ON RIDE, WILL NOTIFY NURSE OR GUM PULLER WHEN READY FOR WHEELCHAIR.
--- NOTE | 2020-07-04 13:12 | NUR ---
PT LEFT UNIT VIA WHEELCHAIR, WITH ALL BELONGIGNS, NAD NOTED.
--- NOTE | 2020-07-04 18:21 | MORECARE ---
CASE MANAGEMENT DISCHARGE SUMMARY PATIENT: JULIO ACE UNIT: [id number] ADM DATE: 07/02/20 AGE: 65 : 55 SEX: F ROOM/BED: D.5327 AUTHOR: LIAN CANTU PHYSICIAN: REFERRING PHYSICIAN: SANTIAGO ROBERTS MD DATE OF SERVICE: 07/04/20 Discharge Plan Patient Name: JULIO ACE Facility: [facility]:[place] : 1955 Planned Disposition: Home Anticipated Discharge Date: 07/04/20 Discharge Date: 07/04/2020 Expected LOS: 2 Initial Reviewer: [email or web address] Initial Review Date: 07/04/2020 Generated: 07/04/20 7:20 pm Comments DCP- Discharge Planning Updated by [email or web address]: Beau Daugherty on 07/04/20 5:[address] Patient Name: JULIO ACE Admission Status: ER Accout number: [id number] Admission Date: 07-02-2020 : 1955 Admission Diagnosis:URINARY TRACT INFECTION, SITE NOT SPECIFIED Attending: HEMAL Current LOS: 2 Anticipated DC Date: 07-04-2020 Planned Disposition: Home Primary Insurance: MEDICARE A & B Discharge Planning Comments: CM met with patient to complete DC plan and needs. CM educated patient on the CM role and verbal consent was given by patient to complete assessment. CM verified patient's address, phone number, and emergency contact phone numbers. Patient lives at home with her , Nimesh Ace ([phone]). At discharge patient plans to return home and feels this is a safe discharge. The patient has 3 steps to navigate to enter the home and it is safe. Patient fills her medications at [facility]. CM discussed availability of home health, rehab services, and medical equipment. Patient declined HHS, SNF, IPR, and DME. The patient neither mentioned nor discussed any other discharge needs and he/she is satisfied with DC plan. Transportation provider at discharge will be her , Nimesh. DC IMM delivered, explained, signed by the patient, and placed in chart. Signed form also left with the patient. CM will continue to follow and will assist as needed with dc plans/needs. Revenue Stamp Clerk: Beau Daugherty DCPIA - Discharge Planning Initial Assessment Updated by [email or web address]: Beau Daugherty on 07/04/20 6:17 pm * Is the patient Alert and Oriented? Yes * How many steps to enter\exit or inside your home? 0 * PCP Dr. Jose Manuel Weir * Pharmacy [facility] [address] * Preadmission Environment Home with Family * ADLs Independent * Equipment None * Other Equipment NONE * List name and contact numbers for known caregivers / representatives who currently or will assist patient after discharge: Nimesh Ace (Spouse) [phone] * Verbal permission to speak to the caregivers and representatives has been obtained from the patient. Yes * Community resources currently utilized None * Please name any agencies selected above. NONE * Additional services required to return to the preadmission environment? No * Can the patient safely return to the preadmission environment? Yes * Has this patient been hospitalized within the prior 30 days at any hospital? No Coverage Notice Reviewer: [id number] - Beau Daugherty Notice Issued Date-Time: 07/04/2020 11:01 Notice Type: IM Discharge Notice Notice Delivered To: Patient Relationship to Patient: Self News Assistant Name: Delivery Method: HAND - Hand Delivered Keely Days: Prior Verbal Notification: Recipient Understood Notice: Yes Recipient Signature: Yes Med Rec Note Co-signed by Attending: Coverage Notice Comment: DC IMM delivered, explained, signed by the patient, and placed in chart. Signed form also left with the patient. Patient Name: JULIO ACE Page [phone] at 1821 All edits/amendments must be made on the electronic document DICTATION DATE: 07/04/201820 MARKETING LIAISON: CARA 07/04/201820 RPT#: [id number] DC DATE:07/04/20 STATUS: DIS IN [facility] [address] [place] [address] END OF REPORT
[2020-07-05 07:10] LABS: CREATININE - URINE 97.8 mg/dL (Not Estab.); MICROALBUMIN - URINE 64.1 ug/mL (Not Estab.)
--- NOTE | 2020-07-06 09:12 | MORECARE ---
CASE MANAGEMENT DISCHARGE SUMMARY PATIENT: JULIO ACE UNIT: [id number] ADM DATE: 07/02/20 AGE: 65 : 55 SEX: F ROOM/BED: D.4255 AUTHOR: LIAN CANTU PHYSICIAN: REFERRING PHYSICIAN: SANTIAGO ROBERTS MD DATE OF SERVICE: 07/06/20 Discharge Plan Patient Name: JULIO ACE Facility: [facility]:[place] : 1955 Planned Disposition: Home Anticipated Discharge Date: 07/04/20 Discharge Date: 07/04/2020 Expected LOS: 2 Initial Reviewer: [email or web address] Initial Review Date: 07/04/2020 Generated: 07/06/20 10:11 am Comments DCP- Discharge Planning Updated by [id number]: Beau Daugherty on 07/04/20 5:[address] Patient Name: JULIO ACE Admission Status: ER Accout number: [id number] Admission Date: 07-02-2020 : 1955 Admission Diagnosis:URINARY TRACT INFECTION, SITE NOT SPECIFIED Attending: HEMAL Current LOS: 2 Anticipated DC Date: 07-04-2020 Planned Disposition: Home Primary Insurance: MEDICARE A & B Discharge Planning Comments: CM met with patient to complete DC plan and needs. CM educated patient on the CM role and verbal consent was given by patient to complete assessment. CM verified patient's address, phone number, and emergency contact phone numbers. Patient lives at home with her , Nimesh Ace ([phone]). At discharge patient plans to return home and feels this is a safe discharge. The patient has 3 steps to navigate to enter the home and it is safe. Patient fills her medications at [facility]. CM discussed availability of home health, rehab services, and medical equipment. Patient declined HHS, SNF, IPR, and DME. The patient neither mentioned nor discussed any other discharge needs and he/she is satisfied with DC plan. Transportation provider at discharge will be her , Nimesh. DC IMM delivered, explained, signed by the patient, and placed in chart. Signed form also left with the patient. CM will continue to follow and will assist as needed with dc plans/needs. Program Coordinator Executive Education: Beau Daugherty DCPIA - Discharge Planning Initial Assessment Updated by [email or web address]: Beau Daugherty on 07/04/20 6:17 pm * Is the patient Alert and Oriented? Yes * How many steps to enter\exit or inside your home? 0 * PCP Dr. Jose Manuel Weir * Pharmacy [facility] [address] * Preadmission Environment Home with Family * ADLs Independent * Equipment None * Other Equipment NONE * List name and contact numbers for known caregivers / representatives who currently or will assist patient after discharge: Nimesh Ace (Spouse) [phone] * Verbal permission to speak to the caregivers and representatives has been obtained from the patient. Yes * Community resources currently utilized None * Please name any agencies selected above. NONE * Additional services required to return to the preadmission environment? No * Can the patient safely return to the preadmission environment? Yes * Has this patient been hospitalized within the prior 30 days at any hospital? No Coverage Notice Reviewer: [id number] - Beau Daugherty Notice Issued Date-Time: 07/04/2020 11:01 Notice Type: IM Discharge Notice Notice Delivered To: Patient Relationship to Patient: Self Kindergarten Instructional Assistant Name: Delivery Method: HAND - Hand Delivered Keely Days: Prior Verbal Notification: Recipient Understood Notice: Yes Recipient Signature: Yes Med Rec Note Co-signed by Attending: Coverage Notice Comment: DC IMM delivered, explained, signed by the patient, and placed in chart. Signed form also left with the patient. Last DP export: 07/04/20 5:21 Patient Name: JULIO ACE Page [id number] at 0912 All edits/amendments must be made on the electronic document DICTATION DATE: 07/06/20911 JAVA WEB APPLICATION DEVELOPER: CARA 07/06/20911 RPT#: [id number] DC DATE:07/04/20 STATUS: DIS IN [facility] [address] [place] [address] END OF REPORT
== END 2020-07-04 13:13 | disposition home or self-care (01) | DRG 177 ==
LOC: D.ER 21:31 → D.EDHOLD 23:53 → D.M2 07-03 14:38
PROVIDERS: Emergency Medicine; Internal Medicine Nephrology; ADMIT Family Medicine; ATTEND Family Medicine
DX: U07.1 COVID-19 (principal); I21.A1 Myocardial infarction type 2; N39.0 Urinary tract infection, site not specified; N17.9 Acute kidney failure, unspecified; Z94.0 Kidney transplant status; I13.0 Hypertensive heart and chronic kidney disease with heart failure and stage 1 through stage 4 chronic kidney disease, or unspecified chronic kidney disease; D69.6 Thrombocytopenia, unspecified; I25.10 Atherosclerotic heart disease of native coronary artery without angina pectoris; E11.22 Type 2 diabetes mellitus with diabetic chronic kidney disease; N18.9 Chronic kidney disease, unspecified; R56.9 Unspecified convulsions; M19.90 Unspecified osteoarthritis, unspecified site; H26.9 Unspecified cataract; E11.65 Type 2 diabetes mellitus with hyperglycemia; I50.9 Heart failure, unspecified; E86.9 Volume depletion, unspecified; Z86.73 Personal history of transient ischemic attack (TIA), and cerebral infarction without residual deficits

== ENCOUNTER 2020-07-10 00:20 | Emergency (ER) | payer MEDICARE ==
[~2020-07-10] VITALS: Ht 165.1 cm; Wt 77.3 kg
[~2020-07-10 00:20] MED LIST changes: +FAMOTIDINE10 MG PO; +FUROSEMIDE20 MG PO; +OMNICEF300 MG PO; +PROCARDIA10 MG PO; +TACROLIMUS ANHYD1 MG PO; +ZETIA10 MG PO
[2020-07-10 00:27] VITALS: Ht 165.1 cm; Wt 77.3 kg
[2020-07-10 01:41] LABS: BASOPHILS 0.2 % (0-2); EOSINOPHILS 0 % (0-7); HEMATOCRIT 49.1 % (36.0-48.0); HEMOGLOBIN 15.9 g/dL (12-16); IMMATURE GRANULOCYTES 1.9 % (0-5); LYMPHOCYTES 14.3 % (15-50); MCH 29.2 pg (26.0-34.0); MCHC 32.4 g/dL (31.0-37.0); MCV 90.3 fL (80.0-100.0); MEAN PLATELET VOLUME 10.5 fL (7.4-10.4); MONOCYTES 6.7 % (2-11); NEUTROPHILS 76.9 % (40-80); RBC 5.44 10x6/uL (4.00-5.40); RDW 13.1 % (11.5-14.5); WBC 4.2 10x3/uL (4.8-10.8)
[2020-07-10 01:44] LABS: PLATELET COUNT 78 10x3/uL (130-400); PLATELET ESTIMATE DECREASED
[2020-07-10 01:47] LABS: CALC OSMOLALITY 285 mosm/kg (275-300); CALCIUM 9.4 mg/dL (8.5-10.1); CARBON DIOXIDE 24.5 mmol/L (21.0-32.0); CHLORIDE - SERUM 102 mmol/L (98-107); CREATININE - SERUM 1.4 mg/dL (0.6-1.3); POTASSIUM - SERUM 4.1 mmol/L (3.5-5.1); SODIUM 142 mmol/L (136-145); UREA NITROGEN 28 mg/dL (7-18); eGFR NON AFRICAN AMERICAN 40 mL/min (90-120)
[2020-07-10 01:49] LABS: GLUCOSE 53 mg/dL (74-106)
[2020-07-10 02:29] LABS: ALBUMIN 3.6 g/dL (3.4-5.0); ALKALINE PHOSPHATASE 71 U/L (30-120); ALT (SGPT) 29 U/L (10-68); BILIRUBIN - TOTAL 0.62 mg/dL (0.2-1.3); C-REACTIVE PROTEIN 2.2 mg/dL (0.0-0.9); CKMB 0.7 U/L (0.0-3.6); CREATINE KINASE 73 UL (21-215); FERRITIN 2878 ng/mL (3-244); MAGNESIUM - SERUM 1.6 mg/dL (1.8-2.4); PRO BNP 1479 pg/mL (0-125)
[2020-07-10 03:17] LABS: NITRITE NEGATIVE (NEGATIVE)
[2020-07-10 03:18] LABS: BILIRUBIN NEGATIVE (NEGATIVE); KETONE SMALL mg/dL (NEGATIVE); SQUAMOUS EPITHELIAL 0-5 HPF (0-4); UROBILINOGEN NORMAL mg/dL (< 2); WHITE CELLS - URINE 0-5 HPF (0-4)
[2020-07-10 03:19] LABS: BACTERIA FEW HPF (NONE SEEN)
[2020-07-10 04:20] VITALS: BP 143/56
[2020-07-10] MEDS ORDERED: PULMICORT0.5 MG/21 INH (13:14)
[2020-07-10] MEDS ORDERED: ALBUTEROL1.25 MG/3 INH (13:14)
[2020-07-10] MEDS ORDERED: ATIVAN1 MG PO (13:16)
[2020-07-10] MEDS ORDERED: SYMBICORT 16010.2 GM INH (13:34)
[2020-07-11] MEDS ORDERED: PROGRAF5 MG PO (14:31)
== END 2020-07-10 03:50 | disposition home or self-care (01) ==
LOC: D.ER 00:20
PROVIDERS: Family Medicine
DX: U07.1 COVID-19 (principal); E86.0 Dehydration; Z94.0 Kidney transplant status; E11.9 Type 2 diabetes mellitus without complications; I25.2 Old myocardial infarction; Z79.4 Long term (current) use of insulin

== ENCOUNTER 2020-07-10 11:08 | Inpatient (IN) | payer MEDICARE ==
[~2020-07-10] VITALS: Ht 165.1 cm; Wt 77.1 kg
[2020-07-10 13:11] LABS: ANION GAP 14.9 mmol/L (8-16); CALCIUM 8.8 mg/dL (8.5-10.1); CARBON DIOXIDE 23.5 mmol/L (21.0-32.0); CREATININE - SERUM 1.2 mg/dL (0.6-1.3); POTASSIUM - SERUM 4.4 mmol/L (3.5-5.1)
[2020-07-10] MEDS ORDERED: PULMICORT0.5 MG/21 INH (13:14)
[2020-07-10] MEDS ORDERED: ALBUTEROL1.25 MG/3 INH (13:14)
[2020-07-10] MEDS ORDERED: ATIVAN1 MG PO (13:16)
[2020-07-10 13:22] LABS: BASOPHILS 0.3 % (0-2); EOSINOPHILS 0.3 % (0-7); HEMATOCRIT 44.5 % (36.0-48.0); HEMOGLOBIN 14.6 g/dL (12-16); IMMATURE GRANULOCYTES 3.2 % (0-5); LYMPHOCYTES 31.2 % (15-50); MCH 29.4 pg (26.0-34.0); MCHC 32.8 g/dL (31.0-37.0); MCV 89.7 fL (80.0-100.0); MEAN PLATELET VOLUME 10.6 fL (7.4-10.4); MONOCYTES 8.8 % (2-11); NEUTROPHILS 56.2 % (40-80); RBC 4.96 10x6/uL (4.00-5.40); RDW 13.1 % (11.5-14.5); WBC 3.2 10x3/uL (4.8-10.8)
[2020-07-10 13:23] LABS: PLATELET COUNT 133 10x3/uL (130-400)
[2020-07-10 13:25] LABS: ALBUMIN 3.1 g/dL (3.4-5.0); BILIRUBIN - TOTAL 0.56 mg/dL (0.2-1.3); MAGNESIUM - SERUM 1.5 mg/dL (1.8-2.4); PROTEIN - SERUM 6.5 g/dL (6.4-8.2); TROPONIN-I 0.037 ng/mL (0.000-0.060)
[2020-07-10] MEDS ORDERED: SYMBICORT 16010.2 GM INH (13:34)
[2020-07-10 16:50] VITALS: BP 106/57
[2020-07-10 19:33] VITALS: BP 134/70
[2020-07-11 00:27] VITALS: BP 131/74
[2020-07-11 06:19] VITALS: BP 134/70
--- NOTE | 2020-07-11 08:55 | NUR ---
PT PROVIDED WITH BREAKFAST TRAY.
--- NOTE | 2020-07-11 09:15 | NUR ---
ADVISED EDP BHUPINDER OF FSBS OF [address]. [address] DR ROE CAN DOSE INSULIN ON INSULIN PUMP PER HOME PROTOCOL. PT REPORTS SHE BOLUS 2 UNITS PER HOME PROTOCOL. PT BOLUSED INSULIN ON PUMP. VERIFIED DOSING OF 2 UNITS ON PUMP SCREEN PRIOR TO PATIENT BOLUSING MEDICATION.
[2020-07-11 09:45] LABS: HEMATOCRIT 43.9 % (36.0-48.0); HEMOGLOBIN 14.4 g/dL (12-16); MCH 29.3 pg (26.0-34.0); MCHC 32.8 g/dL (31.0-37.0); MCV 89.2 fL (80.0-100.0); MEAN PLATELET VOLUME 10.8 fL (7.4-10.4); PLATELET COUNT 135 10x3/uL (130-400); RBC 4.92 10x6/uL (4.00-5.40); RDW 12.9 % (11.5-14.5); WBC 2.6 10x3/uL (4.8-10.8)
[2020-07-11 09:53] LABS: INR 1.06 (0.85-1.17); PROTIME 13.8 SECONDS (11.6-15.0)
[2020-07-11 10:07] LABS: ANION GAP 18.3 mmol/L (8-16); CALCIUM 9.3 mg/dL (8.5-10.1); CARBON DIOXIDE 19.5 mmol/L (21.0-32.0); MAGNESIUM - SERUM 1.7 mg/dL (1.8-2.4); PHOSPHOROUS 3.8 mg/dL (2.5-4.9); POTASSIUM - SERUM 4.8 mmol/L (3.5-5.1)
--- NOTE | 2020-07-11 10:13 | NUR ---
PER PATIENT SHE IS NOT SUPPOSED TO TAKE VALCYTE
[2020-07-11 10:16] LABS: LYMPHOCYTES 37 % (15-50); MONOCYTES 2 % (2-11); NEUTROPHILS 60 % (40-80); PLATELET ESTIMATE NORMAL
--- NOTE | 2020-07-11 11:11 | NUR ---
PT REPORTS THAT SHE TAKES 80 MG PRAVASTATIN, NOT 10MG. PAGED ADMITTING PHYSICIAN TO CHANGE ORDER
--- NOTE | 2020-07-11 11:19 | NUR ---
PT ASSISTED TO BEDSIDE COMMODE WITHOUT DIFFICULTY.
--- NOTE | 2020-07-11 11:29 | NUR ---
PT PROVIDED WITH MEAL TRAY
[2020-07-11 11:42] VITALS: BP 123/61
--- NOTE | 2020-07-11 11:44 | NUR ---
FSBS 262
--- NOTE | 2020-07-11 11:46 | NUR ---
PT REPORTS SHE IS GOING TO DOSE INSULIN ON HER INSULIN PUMP AND DOES NOT WANT SQ INSULIN ADMINISTERED. PT BOLUSED 6.5 PER INSULIN PUMP.VERIFIED DOSING PRIOR TO PATIENT ADMINISTRATION.
--- NOTE | 2020-07-11 12:56 | NUR ---
PER DR ROE CHANGE DOSE OF PRAVASTATIN TO 80MG DAILY PER PATIENT HOME DOSING
--- NOTE | 2020-07-11 13:20 | NUR ---
PT ASSISTED TO BEDSIDE COMMODE. HAD SOFT BOWEL MOVEMENT.
--- NOTE | 2020-07-11 13:32 | MORECARE ---
CASE MANAGEMENT DISCHARGE SUMMARY PATIENT: JULIO ACE UNIT: [id number] ADM DATE: 07/10/20 AGE: 65 : 55 SEX: F ROOM/BED: D.E06 AUTHOR: LIAN CANTU PHYSICIAN: REFERRING PHYSICIAN: TEOFILO ROE MD DATE OF SERVICE: 07/11/20 Discharge Plan Patient Name: JULIO ACE Facility: [facility]:[place] : 1955 Planned Disposition: Anticipated Discharge Date: Discharge Date: Expected LOS: Initial Reviewer: [email or web address] Initial Review Date: 07/10/2020 Generated: 07/11/20 2:31 pm DCP- Discharge Planning Updated by [email or web address]: Tierney Porras on 07/11/20 12:[address] CM contacted the patient via phone (tested COVID + since 07/02), in ER #6, for DC planning. Patient is in agreement to same. Patient lives independently, in her home, with her , Nimesh Ace, (currently hospitalized and COVID +). PCP: Dr. Thomas. [facility]. Steps: 3 w/o railing. 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 CM discussed HHS, SNF, Rehab. Patient states she does not understand why she would need a SNF stay and endanger other residents in a facility. CM assured patient that SNF facilities have special halls reserved for COVID patient's. At this point, the patient hung up the phone on CM. CM will continue to follow patient and assist with any DC needs. Patient Name: JULIO ACE Page [phone] at 1332 All edits/amendments must be made on the electronic document DICTATION DATE: 07/11/201330 PORTFOLIO CONSULTANT: CARA 07/11/20 133 RPT#: [id number] DC DATE: STATUS: ADM IN [facility] [address] [id number] END OF REPORT
--- NOTE | 2020-07-11 13:39 | MORECARE ---
CASE MANAGEMENT DISCHARGE SUMMARY PATIENT: JULIO ACE UNIT: [id number] ADM DATE: 07/11/20 AGE: 65 : 55 SEX: F ROOM/BED: D.E06 AUTHOR: LIAN CANTU PHYSICIAN: REFERRING PHYSICIAN: TEOFILO ROE MD DATE OF SERVICE: 07/11/20 Discharge Plan Patient Name: JULIO ACE Facility: [facility]:[place] : 1955 Planned Disposition: Anticipated Discharge Date: Discharge Date: Expected LOS: Initial Reviewer: [email or web address] Initial Review Date: 07/10/2020 Generated: 07/11/20 2:38 pm DCP- Discharge Planning Updated by [email or web address]: Tierney Porras on 07/11/20 12:[address] CM contacted the patient via phone (tested COVID + since 07/02), in ER #6, for DC planning. Patient is in agreement to same. Patient lives independently, in her home, with her , Nimesh Ace, (currently hospitalized and COVID +). PCP: Dr. Thomas. [facility]acy: [facility]. Steps: 3 w/o railing. 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 When CM asked about her children helping her, she states "they don't want to be around us, but my grandson has been coming by ad bringing me things." CM discussed HHS, SNF, Rehab. Patient states she does not understand why she would need a SNF stay and endanger other residents in a facility. CM assured patient that SNF facilities have special halls reserved for COVID patient's. At this point, the patient hung up the phone on CM. CM will continue to follow patient and assist with any DC needs. Last DP export: 07/11/20 12:32 Patient Name: JULIO ACE Page [phone] at 3358 All edits/amendments must be made on the electronic document DICTATION DATE: 07/11/20 1336 CURING SUPERVISOR: CARA 07/11/20 1338 RPT#: [id number] DC DATE: STATUS: ADM IN [facility] [address] [place] [address] END OF REPORT
--- NOTE | 2020-07-11 14:01 | NUR ---
CALLED REPORT TO KONRAD ACOSTA AT THIS TIME.
[2020-07-11] MEDS ORDERED: PROGRAF5 MG PO (14:31)
[2020-07-11 14:47] VITALS: BP 121/58; BMI 28.3
--- NOTE | 2020-07-11 17:20 | NUR ---
PT MENTAL CONDITION UNDCHANGED FROM PREVIOUS CHARTING. WILL PASSING EVENING MEDICATIONS, NOTED NEW CHANGES OT PTS ABD. ON BILAT LLQ PT HAS FIST SIZED, PURPLING, MILDLY PROTUDING BULDGES. THE ONE ON THE RIGHT IS NOTABLY LARGER AND HARD TO TOUCH AROUND THE EDGES. PT FLINCHES AWAY FROM PAIN WHEN PALPATING THE DEVELOPMENT. ORDERED/RECIEVED KUD ABD XR.
--- NOTE | 2020-07-11 19:30 | NUR ---
RECEIVED REPORT, WILL ASSUME CARE OF PT, ASSIST TO RESTROOM AND BACK TO BED, DENIES ANY OTHER NEEDS AT THISN TIME, BED IS LOW, SRX2, CALL LIGHT IN REACH, WILL CONTINUE PLAN OF CARE
[2020-07-11 20:37] VITALS: BP 114/55
--- NOTE | 2020-07-11 21:57 | NUR ---
PT WANTED TO GIVE GRANDSON CHUYITA ROCHA A CHECK, I HAD MISHA AUGUSTE VISOR WITNESS CHECK BEING PLACED IN ENVELOPE, THEN WE TOOK IT TO ER, HE SHOWED ID AND WE GAVE ENVELOPE TO HIM
[2020-07-12 00:27] VITALS: BP 142/68
--- NOTE | 2020-07-12 00:40 | NUR ---
PLASMA WAS STARTED BY TAL REYNOLDS, PT DENIES ANY PROBLEMS AT THIS TIME, WILL CONTINUE PLAN OF CARE
[2020-07-12 04:23] VITALS: BP 175/70
--- NOTE | 2020-07-12 04:46 | NUR ---
UNABLE TO GET LAB, GAVE TUBES TO CONCRETE STONE FABRICATING SUPERVISOR
[2020-07-12 07:50] LABS: BASOPHILS 0 % (0-2); EOSINOPHILS 0 % (0-7); HEMATOCRIT 43.7 % (36.0-48.0); HEMOGLOBIN 14.5 g/dL (12-16); IMMATURE GRANULOCYTES 1.2 % (0-5); LYMPHOCYTES 28.8 % (15-50); MCH 29.7 pg (26.0-34.0); MCHC 33.2 g/dL (31.0-37.0); MCV 89.5 fL (80.0-100.0); MEAN PLATELET VOLUME 10.6 fL (7.4-10.4); MONOCYTES 9.6 % (2-11); NEUTROPHILS 60.4 % (40-80); PLATELET COUNT 136 10x3/uL (130-400); RBC 4.88 10x6/uL (4.00-5.40); RDW 13.1 % (11.5-14.5); WBC 3.3 10x3/uL (4.8-10.8)
[2020-07-12 08:05] LABS: ANION GAP 18.6 mmol/L (8-16); CALCIUM 9.4 mg/dL (8.5-10.1); CARBON DIOXIDE 19.7 mmol/L (21.0-32.0); CREATININE - SERUM 1.1 mg/dL (0.6-1.3); MAGNESIUM - SERUM 1.8 mg/dL (1.8-2.4); PHOSPHOROUS 3.5 mg/dL (2.5-4.9); POTASSIUM - SERUM 4.3 mmol/L (3.5-5.1)
[2020-07-12 08:20] VITALS: BP 146/65
--- NOTE | 2020-07-12 10:09 | NUR ---
PT AWAKE AND ORIENTED, LYING IN BED EATING BREAFKAST. PT HAS NO COMPLAINTS OR OCNCERNS TO VOICE A THIS TIME. WHENT OVER MEDICATIONS, WILL MAKE APPROPRIATE CHANGES. PT TOOK HER OWN MEDICATION THAT THE HOSPITAL CAN NOT PROVIDE. WILL CNT. TO MONITOR. CL IN REACH, SRX2.
--- NOTE | 2020-07-12 12:36 | NUR ---
PT AWAKE AND ORIENTED, PRIVDED LUNCH. PT CLEARED OFF PATIENT, SHE IS ABLE TO AMBULATE UNASSISTED IN ROOM. NO COMPLAINTS OR CONCERNS AT THIS TIME. CL INR EACH, SRX2. PT UP AT BEDSIDE RECLINER.
--- NOTE | 2020-07-12 17:21 | NUR ---
I have reviewed this patient and I concur with the Shift Assessment completed by the Licensed Practical Nurse today this shift.
[2020-07-12 17:25] VITALS: BP 112/62
--- NOTE | 2020-07-12 18:42 | NUR ---
PT AWAKE AND ORIENTED, SITTING IN RELCINER BESIDE BED. NO COMPLAINTS OR CONCERNS AT THIS TIME. MEDS REVIEWED AND CORRECTED AND APPROPRIATE BY DR. PHAM. WILL CNT. TO MONITOR. CL IN REACH, SRX2.
[2020-07-12 19:09] VITALS: BP 121/63
--- NOTE | 2020-07-12 19:30 | NUR ---
RECEIVED REPORT, WILL ASSUME CARE OF PT, ASSIST PT TO RESTROOM AND BACK TO BED, DENIES ANY OTHER NEEDS AT THIS TIME, BED IS LOW, SRX2, CALL LIGHT IN REACH, WILL CONTINUE PLAN OF CARE
--- NOTE | 2020-07-13 02:30 | NUR ---
I have reviewed this patient and I concur with the Shift Assessment completed by the Licensed Practical Nurse today this shift.
[2020-07-13 07:18] LABS: BASOPHILS 0 % (0-2); EOSINOPHILS 0 % (0-7); HEMATOCRIT 43.3 % (36.0-48.0); HEMOGLOBIN 14.1 g/dL (12-16); IMMATURE GRANULOCYTES 1.2 % (0-5); LYMPHOCYTES 10.7 % (15-50); MCH 29.1 pg (26.0-34.0); MCHC 32.6 g/dL (31.0-37.0); MCV 89.3 fL (80.0-100.0); MEAN PLATELET VOLUME 10.1 fL (7.4-10.4); MONOCYTES 6.4 % (2-11); NEUTROPHILS 81.7 % (40-80); PLATELET COUNT 152 10x3/uL (130-400); RBC 4.85 10x6/uL (4.00-5.40); RDW 13.2 % (11.5-14.5)
[2020-07-13 07:22] LABS: WBC 4.2 10x3/uL (4.8-10.8)
[2020-07-13 07:38] LABS: CALCIUM 9.2 mg/dL (8.5-10.1); CARBON DIOXIDE 22.3 mmol/L (21.0-32.0); CREATININE - SERUM 1.2 mg/dL (0.6-1.3); MAGNESIUM - SERUM 1.6 mg/dL (1.8-2.4); PHOSPHOROUS 2.8 mg/dL (2.5-4.9); POTASSIUM - SERUM 4.3 mmol/L (3.5-5.1)
[2020-07-13 08:09] VITALS: BP 135/62
--- NOTE | 2020-07-13 09:44 | NUR ---
PT ALERTA ND OREITNED SITTING UP IN BED EATING BREAFKAST. NO COMPLAITNS OR CONCERNS AT THIS TIME, TOOK ALL MEDICATIONS WITHOUT COMPLICATIONS. TRASH CHANGED, ROOM CLEAN. PT DENIES WANT FOR SHOWER TODAY, STATING SHE WILL TAKE ONE TOMORROW. CL IN REACH, SRX2.
[2020-07-13 11:33] VITALS: BP 141/62; BP 99/74
--- NOTE | 2020-07-13 12:52 | NUR ---
PT AWAKE AND ORIENTED, LYING IN BED WATCHING TELIVSION. I/V RESTARTED TO LFA, ONE STICK, CURRENTLY SL. CL IN REACH, SRX2. NO COMPLAINTS OR CONCERNS STATED AT THIS TIME.
[2020-07-13 13:15] VITALS: Ht 165.1 cm; Wt 77.1 kg
--- NOTE | 2020-07-13 14:11 | NUR ---
I have reviewed this patient and I concur with the Shift Assessment completed by the Licensed Practical Nurse today this shift.
[2020-07-13] MEDS ORDERED: OMNICEF300 MG PO (14:38)
[2020-07-13] MEDS ORDERED: AZITHROMYCIN500 MG PO (14:38)
[2020-07-13] MEDS ORDERED: VENTOLIN HFA [SP8 GM INH (14:39)
[2020-07-13] MEDS ORDERED: DECADRON4 MG PO (14:39)
--- NOTE | 2020-07-13 15:06 | NUR ---
PT REFUSING TO DISCHARGE. CM ON THE CASE.
--- NOTE | 2020-07-13 15:28 | NUR ---
I have reviewed this patient and I concur with the Shift Assessment completed by the Licensed Practical Nurse today this shift.
--- NOTE | 2020-07-13 15:50 | MORECARE ---
CASE MANAGEMENT DISCHARGE SUMMARY PATIENT: JULIO MODI UNIT: [id number] ADM DATE: 07/11/20 AGE: 65 : 55 SEX: F ROOM/BED: D.0302 AUTHOR: LIAN CANTU PHYSICIAN: REFERRING PHYSICIAN: TEOFILO ROE MD DATE OF SERVICE: 07/13/20 Discharge Plan Patient Name: JULIO MODI Facility: [facility]:[place] : 1955 Planned Disposition: Anticipated Discharge Date: Discharge Date: Expected LOS: Initial Reviewer: [id number] Initial Review Date: 07/10/2020 Generated: 07/13/20 4:50 pm Comments DCP- Discharge Planning Updated by [email or web address]: Alyssa Cisneros on 07/13/20 2:[address] Patient Name: JULIO MODI Encounter No: [id number] : 1955 Primary Insurance: MEDICARE A & B Anticipated DC Date: Planned Disposition: External Planned Provider: : DCP follow-up note: Cm called pt in room about dc plan. Patient states that she can not go home. States she has had a kidney transplant, and a heart attack in the past. CM stated we are not actively treating her for those conditions and she is more at risk from getting sick while being in the hospital. Patient states to call her and hung up the phone. Cm called her husbands room to update condition. CM provided clinical update. Mr modi states that his is a kidney transplant and needs to be here like he does. States she needs the plasma and the Covid medication. CM states that she is not requiring that type of treatment. States her vitals signs are stable. Mr Modi states that he will call her and get back with CM. Case management will follow and assist as needed. DC IMM delivered by nurse to pt. Pt refused to allow CM to talk about DC . CM talked to patient about home health services or snf for rehab. Pt declined. Alyssa Cisneros DCP- Discharge Planning Updated by [email or web address]: Tierney Porras on 07/11/20 12:[address] CM contacted the patient via phone (tested COVID + since 07/02), in ER #6, for DC planning. Patient is in agreement to same. Patient lives independently, in her home, with her , Nimesh Modi, (currently hospitalized and COVID +). PCP: Dr. Thomas. Pharmacy: [facility]. Steps: 3 w/o railing. Patient states she has been independent with her care [employer] COUN[employer], although she has been weak, with falls, since her diagnosis. When CM asked about her children helping her, she states "they don't want to be around us, but my grandson has been coming by ad bringing me things." CM discussed HHS, SNF, Rehab. Patient states she does not understand why she would need a SNF stay and endanger other residents in a facility. CM assured patient that SNF facilities have special halls reserved for COVID patient's. At this point, the patient hung up the phone on CM. CM will continue to follow patient and assist with any DC needs. 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 Broker Name: Delivery Method: PHONE - Phone Keely Days: Prior Verbal Notification: Yes Recipient Understood Notice: Yes Recipient Signature: Med Rec Note Co-signed by Attending: Coverage Notice Comment: dc imm delivered Reviewer: [email or web address] Cisneros Notice Issued Date-Time: 07/13/2020 15:00 Notice Type: Patient Choice Letter Notice Delivered To: Patient Relationship to Patient: Self Freight Sales Broker Name: Delivery Method: PHONE - Phone Keely Days: Prior Verbal Notification: Yes Recipient Understood Notice: Yes Recipient Signature: Med Rec Note Co-signed by Attending: Coverage Notice Comment: declined hh or snf Last DP export: 07/11/20 12:39 Patient Name: UJLIO MODI Page [id number] at 1550 All edits/amendments must be made on the electronic document DICTATION DATE: 07/13/20 155 EDITOR BOOK: CARA 07/13/20 155 RPT#: [id number] DC DATE: STATUS: ADM IN [facility] [address] [place] [address] END OF REPORT
--- NOTE | 2020-07-13 16:57 | NUR ---
PT WANTS HOME HEALTH, STATES DAUGHTER IN LAW SHOULD BE ABLE TO PICK HER UP.
--- NOTE | 2020-07-13 19:04 | NUR ---
PT ESCORTED OUT VIA [facility] TO [facility].
--- NOTE | 2020-07-14 08:20 | MORECARE ---
CASE MANAGEMENT DISCHARGE SUMMARY PATIENT: JULIO MODI UNIT: [id number] ADM DATE: 07/11/20 AGE: 65 : 55 SEX: F ROOM/BED: D.3393 AUTHOR: LIAN CANTU PHYSICIAN: REFERRING PHYSICIAN: TEOFILO ROE MD DATE OF SERVICE: 07/14/20 Discharge Plan Patient Name: JULIO MODI Facility: [facility]:[place] : 1955 Planned Disposition: Anticipated Discharge Date: Discharge Date: 07/13/2020 Expected LOS: Initial Reviewer: [email or web address] Initial Review Date: 07/10/2020 Generated: 07/14/20 9:19 am Comments DCP- Discharge Planning Updated by [email or web address]: Alyssa Cisneros on 07/13/20 2:[address] Patient Name: JULIO MODI Encounter No: [id number] : 1955 Primary Insurance: MEDICARE A & B Anticipated DC Date: Planned Disposition: External Planned Provider: : DCP follow-up note: Cm called pt in room about dc plan. Patient states that she can not go home. States she has had a kidney transplant, and a heart attack in the past. CM stated we are not actively treating her for those conditions and she is more at risk from getting sick while being in the hospital. Patient states to call her and hung up the phone. Cm called her husbands room to update condition. CM provided clinical update. Mr modi states that his is a kidney transplant and needs to be here like he does. States she needs the plasma and the Covid medication. CM states that she is not requiring that type of treatment. States her vitals signs are stable. Mr Modi states that he will call her and get back with CM. Case management will follow and assist as needed. DC IMM delivered by nurse to pt. Pt refused to allow CM to talk about DC . CM talked to patient about home health services or fdc for rehab. Pt declined. Alyssa Cisneros DCP- Discharge Planning Updated by [id number]: Tierney Porras on 07/11/20 12:[address] CM contacted the patient via phone (tested COVID + since 07/02), in ER #6, for DC planning. Patient is in agreement to same. Patient lives independently, in her home, with her , Nimesh Modi, (currently hospitalized and COVID +). PCP: Dr. Thomas. Pharmacy: [facility]. Steps: 3 w/o railing. 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 When CM asked about her children helping her, she states "they don't want to be around us, but my grandson has been coming by ad bringing me things." CM discussed HHS, SNF, Rehab. Patient states she does not understand why she would need a SNF stay and endanger other residents in a facility. CM assured patient that SNF facilities have special halls reserved for COVID patient's. At this point, the patient hung up the phone on CM. CM will continue to follow patient and assist with any DC needs. Coverage Notice Reviewer: [id number] Maciej Cisneros Notice Issued Date-Time: 07/13/2020 15:00 Notice Type: IM Discharge Notice Notice Delivered To: Patient Relationship to Patient: Self Cook Mayonnaise Name: Delivery Method: PHONE - Phone Keely Days: Prior Verbal Notification: Yes Recipient Understood Notice: Yes Recipient Signature: Med Rec Note Co-signed by Attending: Coverage Notice Comment: dc imm delivered Reviewer: [email or web address] Maciej Cisneros Notice Issued Date-Time: 07/13/2020 15:00 Notice Type: Patient Choice Letter Notice Delivered To: Patient Relationship to Patient: Self Cook [employer]onnaise Name: Delivery Method: PHONE - Phone Keely Days: Prior Verbal Notification: Yes Recipient Understood Notice: Yes Recipient Signature: Med Rec Note Co-signed by Attending: Coverage Notice Comment: declined hh or snf Last DP export: 07/13/20 2:50 Patient Name: JULIO MODI Page [phone] at 0820 All edits/amendments must be made on the electronic document DICTATION DATE: 07/14/20818 PREVENTION RN: CARA 07/14/20818 RPT#: [id number] DC DATE:07/13/20 STATUS: DIS IN [facility] [address] [place] [address] END OF REPORT
[2020-07-16] MEDS ORDERED: TACROLIMUS 0.75 MG (22:31)
[2020-07-16] MEDS ORDERED: ATIVAN1 MG (22:31)
[2020-07-16] MEDS ORDERED: LIPITOR80 MG (22:32)
== END 2020-07-13 19:04 | disposition home or self-care (01) | DRG 177 ==
LOC: D.ER 11:08 → D.EDHOLD 15:53 → OBSVTIME 15:55 → D.EDHOLD 07-11 13:35 → D.M2 07-11 13:35
PROVIDERS: Emergency Medicine; Family Medicine; ADMIT Emergency Medicine; ATTEND Emergency Medicine
DX: U07.1 COVID-19 (principal); J12.89 Other viral pneumonia; Z94.0 Kidney transplant status; J98.11 Atelectasis; I50.30 Unspecified diastolic (congestive) heart failure; I25.10 Atherosclerotic heart disease of native coronary artery without angina pectoris; E78.5 Hyperlipidemia, unspecified; M19.90 Unspecified osteoarthritis, unspecified site; G89.29 Other chronic pain; M54.9 Dorsalgia, unspecified; F41.9 Anxiety disorder, unspecified; I11.0 Hypertensive heart disease with heart failure; E11.21 Type 2 diabetes mellitus with diabetic nephropathy; Z86.73 Personal history of transient ischemic attack (TIA), and cerebral infarction without residual deficits

== ENCOUNTER → 2021-02-09 08:50 | Outpatient (CLI) | payer MEDICARE ==
[2020-07-17 12:32] VITALS: BMI 27.4
[~2021-02-09 08:50] MED LIST changes: +ALBUTEROL1.25 MG/3 INH; +ATIVAN1 MG PO; +AZITHROMYCIN500 MG PO; +DECADRON4 MG PO; +LIPITOR80 MG PO; +PROGRAF5 MG PO; +PULMICORT0.5 MG/21 INH; +SYMBICORT 16010.2 GM INH; +TACROLIMUS 0.75 MG PO; +VENTOLIN HFA [SP8 GM INH; +ZITHROMAX250 MG PO
[2021-02-09 10:07] LABS: BASOPHILS 0.8 % (0-2); HEMATOCRIT 40.3 % (36.0-48.0); HEMOGLOBIN 13.1 g/dL (12-16); LYMPHOCYTES 30.1 % (15-50); MCH 29.3 pg (26.0-34.0); MCHC 32.6 g/dL (31.0-37.0); MCV 89.8 fL (80.0-100.0); MEAN PLATELET VOLUME 8.7 fL (7.4-10.4); MONOCYTES 10.2 % (2-11); NEUTROPHILS 54.9 % (40-80); PLATELET COUNT 164 10x3/uL (130-400); RBC 4.48 10x6/uL (4.00-5.40); RDW 15.2 % (11.5-14.5); WBC 4.2 10x3/uL (4.8-10.8)
[2021-02-09 10:10] LABS: CREATININE - URINE 46.9 mg/dL (30-125)
[2021-02-09 10:14] LABS: PROTEIN - URINE 5.7 mg/dL (0.0-11.9)
[2021-02-09 11:16] LABS: ALBUMIN 3.9 g/dL (3.4-5.0); ANION GAP 14.8 mmol/L (8-16); BILIRUBIN - TOTAL 0.53 mg/dL (0.2-1.3); CALCIUM 9.4 mg/dL (8.5-10.1); CARBON DIOXIDE 27.7 mmol/L (21.0-32.0); CREATININE - SERUM 1.2 mg/dL (0.6-1.3); MAGNESIUM - SERUM 1.9 mg/dL (1.8-2.4); PHOSPHOROUS 4.5 mg/dL (2.5-4.9); POTASSIUM - SERUM 4.5 mmol/L (3.5-5.1); PROTEIN - SERUM 6.8 g/dL (6.4-8.2)
[2021-02-09 11:45] LABS: BILIRUBIN NEGATIVE (NEGATIVE); KETONE NEGATIVE (NEGATIVE); NITRITE NEGATIVE (NEGATIVE); UROBILINOGEN NORMAL mg/dL (< 2)
[2021-02-09 11:46] LABS: BACTERIA FEW HPF (NONE SEEN); SQUAMOUS EPITHELIAL OCC HPF (0-4); WHITE CELLS - URINE 0-5 HPF (0-4)
== END | disposition home or self-care (01) ==
LOC: D.LAB 08:50
PROVIDERS: ATTEND Internal Medicine
DX: Z94.0 Kidney transplant status (principal)

== ENCOUNTER 2021-02-18 11:00 | Outpatient (CLI) | payer MEDICARE ==
[2020-07-17 12:32] VITALS: BMI 27.4
== END 2021-02-18 23:59 | disposition home or self-care (01) ==
LOC: D.MAMMO 11:00
PROVIDERS: ATTEND Family Medicine
DX: Z12.31 Encounter for screening mammogram for malignant neoplasm of breast (principal)